=== PATIENT | female | born 1935 | race Caucasian/White ===

== ENCOUNTER 2016-04-26 10:10 | Inpatient (IN) | payer SELFPAY ==
[2016-04-26] MEDS: MEGESTROL 40 MG/ML PO SCH (16:51)
[2016-04-26] MEDS: FLUTICASONE INH SCH (19:31)
[2016-04-26] MEDS: SALMETEROL INH SCH (19:31)
[2016-04-26] MEDS: LACTOBACILLUS RHAMNOSUS GG PO SCH (19:31)
--- NOTE | 2016-04-26 22:18 | PCM.HP ---
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 who was discharge few days ago on home health care. Apparently patient claims that she is not getting enough time with the home health, and feels she needs more time around nursing care. She claims her appetite has improved since she has been on megace. HAs difficulty with cooking her meals and feels the nurse aid is not giving her enough time at home. Hence she is admitted under respite care to the hospital. - Related Data Allergies/Adverse Reactions: Allergies Allergy/AdvReac Type Severity Reaction Status Date / Time amoxicillin [From Augmentin] Allergy Cannot Verified 04/26/16 12:09 Remember clavulanic acid Allergy Cannot Verified 04/26/16 12:09 [From Augmentin] Remember levofloxacin [From Levaquin] Allergy Muscle Verified 04/26/16 12:09 Aches lidocaine Allergy Tachycardia Verified 04/26/16 12:09 Home Medications: Home Meds Fluticasone/Salmeterol [Advair Diskus 500-50] 1 puff PO BID 10/19/15 [History] Hydrochlorothiazide 50 mg PO DAILY 10/19/15 [History] Multivitamin [Multi-Vitamin Daily] 1 each PO DAILY 10/19/15 [History] Tiotropium [place] [Spiriva Respimat] 1 puff PO DAILY 10/19/15 [History] Enoxaparin Sodium [Lovenox] 50 mg SQ QPM 02/15/16 [History] Aspirin [Anson Chewable Aspirin] 81 mg PO DAILY 04/21/16 [History] Calcium Carbonate [Calcium] 500 mg PO QPM 04/21/16 [History] Cholecalciferol (Vitamin D3) [Vitamin D3] 2,000 unit PO QPM 04/21/16 [History] Clarithromycin 500 mg PO DAILY 04/21/16 [History] Ethambutol HCl 800 mg PO DAILY 04/21/16 [History] Fluticasone Propionate [Flonase] 1 spray NASBOTH DAILY 04/21/16 [History] PARoxetine HCl [Paroxetine HCl] 10 mg PO DAILY 04/21/16 [History] Rifampin 600 mg PO DAILY 04/21/16 [History] Lactobacillus Rhamnosus GG [Culturelle] 1 cap PO BID 04/26/16 [History] Megestrol [Megace 40 MG/ML Susp] 400 mg PO BIDMEALS 04/26/16 [History] Past Medical History HEENT History: Reports: Cataract, Impaired vision Cardiovascular History: Reports: Blood clots/VTE/DVT, High cholesterol, Hypertension Respiratory History: Reports: COPD, Other (see below) Other Respiratory History: Alpha 1 anti tryptson deficiency; pulmonary MAC infection Gastrointestinal History: Reports: Other (see below) Other Gastrointestinal History: malnutrition THEATER USHER History: Reports: Fibroids, Other (see below) Other OB/BYN History: under vaginal hysterectomy Musculoskeletal History: Reports: Arthritis Psychiatric History: Reports: Anxiety, Depression Dermatologic History: Reports: Other (see below) Other Dermatologic History: Rosacia - Infectious Disease History Infectious Disease History: Reports: Chicken pox, Measles, Mumps, Shingles, Other (see below) Other Infectious Disease History: cavitated mycobacterium - Past Surgical History HEENT Surgical History: Reports: Cataract surgery GI Surgical History: Reports: Colonoscopy Female Surgical History: Reports: Hysterectomy Social & Family History - Family History Family Medical History: Noncontributory OBGYN: Reports: None Oncologic: Reports: Ovarian - Tobacco Use Smoking Status *Q: Never Smoker Second Hand Smoke Exposure: No - Caffeine Use Caffeine Use: Reports: Coffee - Recreational Drug Use Recreational Drug Use: No H&P Review of Systems - Review of Systems: Review Of Systems: See Below General: Reports: weakness. Denies: fever, chills HEENT: Denies: ear pain, hearing changes, rhinitis, sore throat, vertigo, visual changes Pulmonary: Reports: cough, sputum. Denies: shortness of breath, wheezing Cardiovascular: Denies: chest pain, palpitations, lightheadedness Gastrointestinal: Denies: Abdominal pain, Constipation, Nausea, Vomiting Genitourinary: Denies: dysuria, frequency Musculoskeletal: Denies: shoulder pain, foot pain, joint pain, muscle pain, muscle stiffness Skin: Denies: bruising, pruritis Psychiatric: Denies: confusion, mood lability Exam - Exam Exam: See Below - Vital Signs Vital Signs: Last Vital Signs Temp 98.6 F 04/26/16 13:12 Pulse 101 H 04/26/16 13:12 Resp 20 04/26/16 13:12 BP 118/70 04/26/16 13:12 Pulse Ox 97 04/26/16 13:12 Weight: 50.167 kg - Exam Quality Assessment: supplemental oxygen, other (cachexic) General: alert, oriented, 4 HEENT: PERRLA, Hearing intact, Mucosa moist & pink, Nares patent, Normal nasal septum, Posterior pharynx clear, Conjunctiva clear, EOMI, EACs clear, TMs clear Neck: supple Lungs: Clear to auscultation, Normal respiratory effort Cardiovascular: regular rate, regular rhythm Abdomen: normal bowel sounds, soft Back Exam: normal inspection, full range of motion, NT Extremities: normal inspection, edema (2+ around ankle and lower legs) Skin: warm, dry, intact Neuro Extensive - Mental Status: alert, oriented x3, normal mood/affect, normal cognition Neuro Extensive - Motor, Sensory, Reflexes: CN II-XII intact, normal gait, normal reflexes Psychiatric: alert, normal mood *Q Meaningful Use (ADM) - VTE *Q VTE Criteria *Q: - Stroke *Q Stroke Criteria *Q: - AMI *Q AMI Criteria *Q: - Problem List (1) Moderate protein malnutrition SNOMED Code(s): 509734326 ICD Code: E44.0 - MODERATE PROTEIN-CALORIE MALNUTRITION Status: Acute Current Visit: No (2) Weakness SNOMED Code(s): 14284351 ICD Code: R53.1 - WEAKNESS Status: Acute Current Visit: No Problem List Initiated/Reviewed/Updated: Yes Orders Last 24hrs: Active Orders 24 hr Category Date Time Status Patient Status [ADT] Routine ADT 04/26/16 13:12 Active Ambulate [RC] ASDIRECTED Care 04/26/16 13:12 Active Intake and Output [RC] 06,18 Care 04/26/16 13:14 Active Oxygen Therapy [RC] Care 04/26/16 13:12 Active VTE/DVT Education [RC] Per Unit Routine Care 04/26/16 13:12 Active Vital Signs [RC] DAILY Care 04/26/16 13:12 Active Regular Diet [DIET] Diet 04/26/16 Dinner Ordered CULTURE MRSA SURVEY [RM] Routine Lab 04/26/16 14:53 Received Aspirin Med 04/27/16 08:00 Active 81 mg PO DAILY Calcium Carbonate [Calcium] Med 04/26/16 20:00 Active 500 mg PO QPM Cholecalciferol (Vitamin D3) [Vitamin D3] Med 04/26/16 20:00 Active 2,000 unit PO QPM Clarithromycin [Biaxin] Med 04/27/16 08:00 Active 500 mg PO DAILY Enoxaparin [Lovenox] Med 04/26/16 20:00 Active 50 mg SUBCUT QPM Ethambutol HCl [Ethambutol HCl] Med 04/27/16 08:00 Active 800 mg PO DAILY Fluticasone Propionate [Flonase] Med 04/27/16 08:00 Active 0 gm NASBOTH DAILY Fluticasone/Salmeterol [Advair Diskus 500-50] Med 04/26/16 20:00 Active 1 puff INH BID Hydrochlorothiazide Med 04/27/16 08:00 Active 50 mg PO DAILY Lactobacillus Rhamnosus GG [Culturelle] Med 04/26/16 20:00 Active 1 cap PO BID Megestrol [Megace 40 MG/ML Susp] Med 04/26/16 17:00 Active 400 mg PO BIDMEALS Multivitamin [Multi-Vitamin Daily] Med 04/27/16 08:00 Active 1 each PO DAILY PARoxetine HCl [Paroxetine HCl] Med 04/27/16 08:00 Active 10 mg PO DAILY Rifampin [Rifampin] Med 04/27/16 08:00 Active 600 mg PO DAILY Tiotropium [place] [Spiriva Respimat] Med 04/27/16 08:00 Active 1 puff PO DAILY Resuscitation Status Routine Resus Stat 04/26/16 13:12 Ordered Medication Orders Aspirin (Aspirin) 81 mg PO DAILY [facility] Cholecalciferol (Vitamin D3) 2,000 unit PO QPM [facility] Last Admin: 04/26/16 19:32 Dose: 2,000 unit Clarithromycin (Biaxin) 500 mg PO DAILY [facility] Enoxaparin Sodium (Lovenox) 50 mg SUBCUT QPM [facility] Last Admin: 04/26/16 19:31 Dose: 50 mg Fluticasone Propionate (Flonase) 0 gm NASBOTH DAILY [facility] Hydrochlorothiazide (Hydrochlorothiazide) 50 mg PO DAILY [facility] Megestrol Acetate (Megace 40 Mg/Ml Susp) 400 mg PO BIDMEALS [facility] Last Admin: 04/26/16 16:51 Dose: 400 mg Nf Med 1 Each ( Calcium Carbonate [ Calcium] 500 Mg)* Ptom 500 mg PO QPM [facility] Last Admin: 04/26/16 19:31 Dose: 500 mg Nf Med 1 Each ( Ethambutol Hcl [ Ethambutol Hcl] 800 Mg)*Ptom 800 mg PO DAILY [facility] Nf Med 1 Each ( Lactobacillus Rhamnosus Gg [ Culturelle] 1 Cap)* Ptom 1 cap PO BID [facility] Last Admin: 04/26/16 19:31 Dose: 1 cap Nf Med 1 Each ( Multivitamin [Multi- Vitamin Daily] 1 Each)*Ptom 1 each PO DAILY [facility] Nf Med 1 Each ( Paroxetine Hcl [ Paroxetine Hcl] 10 Mg) *Ptom 10 mg PO DAILY [facility] Nf Med 1 Each ( Rifampin [Rifampin] 600 Mg) *Ptom 600 mg PO DAILY [facility] Nf Med1 Each ( Tiotropium [place] [ Spiriva Respimat] 1 Puff)*Ptom 1 puff PO DAILY [facility] Fluticasone/Salmeterol (Advair Diskus 500-50) 1 puff INH BID [facility] Last Admin: 04/26/16 19:31 Dose: 1 puff Assessment/Plan Comment:: Assesment:Protein energy malnutrition with weakness Plan: will admit patient to respite care. Will have outpatient OT and PT evaluation. will continue high protein diet. continue home medications. appetite has improved on megace, will continue megace for now.
[2016-04-27] MEDS: MEGESTROL 40 MG/ML PO SCH ×2 (08:12→16:27)
[2016-04-27] MEDS: FLUTICASONE INH SCH ×2 (08:13→19:31)
[2016-04-27] MEDS: SALMETEROL INH SCH ×2 (08:13→19:31)
[2016-04-27] MEDS: MULTIVITAMIN PO SCH (08:13)
[2016-04-27] MEDS: Fluticasone Propionate Nasal Spray 16 GM Bottle *PTOM NASBOTH SCH (08:15)
[2016-04-27] MEDS: ETHAMBUTOL HCL 800 MG PO SCH (08:15)
[2016-04-27] MEDS: PAROXETINE HCL 10 MG PO SCH (08:16)
[2016-04-27] MEDS: LACTOBACILLUS RHAMNOSUS GG PO SCH ×2 (08:16→19:33)
[2016-04-27] MEDS: Hydrochlorothiazide 25 MG Tab PO SCH (08:16)
[2016-04-27] MEDS: RIFAMPIN 600 MG PO SCH (08:17)
[2016-04-27] MEDS: CLARITHROMYCIN 500 MG PO SCH (08:19)
[2016-04-27] MEDS: Aspirin 81 MG Tab.Chew *PTOM PO SCH (08:19)
[2016-04-28] MEDS: MEGESTROL 40 MG/ML PO SCH ×2 (08:21→16:32)
[2016-04-28] MEDS: FLUTICASONE INH SCH ×2 (08:43→20:04)
[2016-04-28] MEDS: Hydrochlorothiazide 25 MG Tab PO SCH (08:43)
[2016-04-28] MEDS: RIFAMPIN 600 MG PO SCH (08:43)
[2016-04-28] MEDS: Aspirin 81 MG Tab.Chew *PTOM PO SCH (08:43)
[2016-04-28] MEDS: SALMETEROL INH SCH ×2 (08:43→20:04)
[2016-04-28] MEDS: CLARITHROMYCIN 500 MG PO SCH (08:43)
[2016-04-28] MEDS: Fluticasone Propionate Nasal Spray 16 GM Bottle *PTOM NASBOTH SCH (08:43)
[2016-04-28] MEDS: MULTIVITAMIN PO SCH (08:43)
[2016-04-28] MEDS: ETHAMBUTOL HCL 800 MG PO SCH (08:43)
[2016-04-28] MEDS: PAROXETINE HCL 10 MG PO SCH (08:43)
[2016-04-28] MEDS: LACTOBACILLUS RHAMNOSUS GG PO SCH ×2 (08:43→20:04)
[2016-04-29] MEDS: MEGESTROL 40 MG/ML PO SCH ×2 (06:34→16:20)
[2016-04-29] MEDS: FLUTICASONE INH SCH ×2 (09:18→19:54)
[2016-04-29] MEDS: SALMETEROL INH SCH ×2 (09:18→19:54)
[2016-04-29] MEDS: CLARITHROMYCIN 500 MG PO SCH (09:19)
[2016-04-29] MEDS: Aspirin 81 MG Tab.Chew *PTOM PO SCH (09:19)
[2016-04-29] MEDS: Fluticasone Propionate Nasal Spray 16 GM Bottle *PTOM NASBOTH SCH (09:20)
[2016-04-29] MEDS: Hydrochlorothiazide 25 MG Tab PO SCH (09:20)
[2016-04-29] MEDS: LACTOBACILLUS RHAMNOSUS GG PO SCH ×2 (09:20→19:55)
[2016-04-29] MEDS: ETHAMBUTOL HCL 800 MG PO SCH (09:20)
[2016-04-29] MEDS: RIFAMPIN 600 MG PO SCH (09:22)
[2016-04-29] MEDS: PAROXETINE HCL 10 MG PO SCH (09:22)
[2016-04-29] MEDS: MULTIVITAMIN PO SCH (09:22)
[2016-04-30] MEDS: MEGESTROL 40 MG/ML PO SCH ×2 (06:32→16:31)
[2016-04-30] MEDS: SALMETEROL INH SCH ×2 (10:07→20:40)
[2016-04-30] MEDS: FLUTICASONE INH SCH ×2 (10:07→20:40)
[2016-04-30] MEDS: RIFAMPIN 600 MG PO SCH (10:08)
[2016-04-30] MEDS: ETHAMBUTOL HCL 800 MG PO SCH (10:10)
[2016-04-30] MEDS: CLARITHROMYCIN 500 MG PO SCH (10:10)
[2016-04-30] MEDS: Fluticasone Propionate Nasal Spray 16 GM Bottle *PTOM NASBOTH SCH (10:10)
[2016-04-30] MEDS: Hydrochlorothiazide 25 MG Tab PO SCH (10:11)
[2016-04-30] MEDS: MULTIVITAMIN PO SCH (10:12)
[2016-04-30] MEDS: PAROXETINE HCL 10 MG PO SCH (10:12)
[2016-04-30] MEDS: Aspirin 81 MG Tab.Chew *PTOM PO SCH ×2 (10:13→10:14)
[2016-04-30] MEDS: LACTOBACILLUS RHAMNOSUS GG PO SCH ×2 (10:13→20:50)
[2016-05-01] MEDS: MEGESTROL 40 MG/ML PO SCH ×2 (07:12→16:06)
[2016-05-01] MEDS: FLUTICASONE INH SCH ×2 (09:26→20:54)
[2016-05-01] MEDS: SALMETEROL INH SCH ×2 (09:26→20:54)
[2016-05-01] MEDS: Aspirin 81 MG Tab.Chew *PTOM PO SCH (09:27)
[2016-05-01] MEDS: CLARITHROMYCIN 500 MG PO SCH (09:27)
[2016-05-01] MEDS: Fluticasone Propionate Nasal Spray 16 GM Bottle *PTOM NASBOTH SCH (09:28)
[2016-05-01] MEDS: ETHAMBUTOL HCL 800 MG PO SCH (09:28)
[2016-05-01] MEDS: Hydrochlorothiazide 25 MG Tab PO SCH (09:29)
[2016-05-01] MEDS: PAROXETINE HCL 10 MG PO SCH (09:30)
[2016-05-01] MEDS: LACTOBACILLUS RHAMNOSUS GG PO SCH ×2 (09:30→20:54)
[2016-05-01] MEDS: RIFAMPIN 600 MG PO SCH (09:30)
[2016-05-01] MEDS: MULTIVITAMIN PO SCH (09:31)
[2016-05-01] MEDS ORDERED: Acetaminophen 650 MG Tab.ER PO ONE (22:10)
[2016-05-01] MEDS ORDERED: Acetaminophen 650 MG Tab.ER ONE (22:13)
[2016-05-02] MEDS ORDERED: Acetaminophen 650 MG Tab.ER ONE (02:24)
[2016-05-02] MEDS: MEGESTROL 40 MG/ML PO SCH ×2 (07:30→16:25)
[2016-05-02] MEDS: Aspirin 81 MG Tab.Chew *PTOM PO SCH (07:52)
[2016-05-02] MEDS: SALMETEROL INH SCH ×2 (07:52→20:26)
[2016-05-02] MEDS: Fluticasone Propionate Nasal Spray 16 GM Bottle *PTOM NASBOTH SCH (07:52)
[2016-05-02] MEDS: FLUTICASONE INH SCH ×2 (07:52→20:26)
[2016-05-02] MEDS: CLARITHROMYCIN 500 MG PO SCH (07:52)
[2016-05-02] MEDS: Hydrochlorothiazide 25 MG Tab PO SCH (07:52)
[2016-05-02] MEDS: ETHAMBUTOL HCL 800 MG PO SCH (07:52)
[2016-05-02] MEDS: LACTOBACILLUS RHAMNOSUS GG PO SCH ×2 (07:52→20:27)
[2016-05-02] MEDS: MULTIVITAMIN PO SCH (07:52)
[2016-05-02] MEDS: PAROXETINE HCL 10 MG PO SCH (07:53)
[2016-05-02] MEDS: RIFAMPIN 600 MG PO SCH (07:53)
[2016-05-02] MEDS: diphenhydrAMINE 25 MG Cap PO PRN (14:49)
[2016-05-03] MEDS: MEGESTROL 40 MG/ML PO SCH ×2 (06:57→16:47)
[2016-05-03] MEDS: LACTOBACILLUS RHAMNOSUS GG PO SCH (08:14)
[2016-05-03] MEDS: SALMETEROL INH SCH ×2 (08:14→20:28)
[2016-05-03] MEDS: Aspirin 81 MG Tab.Chew *PTOM PO SCH (08:14)
[2016-05-03] MEDS: CLARITHROMYCIN 500 MG PO SCH (08:14)
[2016-05-03] MEDS: MULTIVITAMIN PO SCH (08:14)
[2016-05-03] MEDS: Fluticasone Propionate Nasal Spray 16 GM Bottle *PTOM NASBOTH SCH (08:14)
[2016-05-03] MEDS: FLUTICASONE INH SCH ×2 (08:14→20:28)
[2016-05-03] MEDS: ETHAMBUTOL HCL 800 MG PO SCH (08:14)
[2016-05-03] MEDS: PAROXETINE HCL 10 MG PO SCH (08:14)
[2016-05-03] MEDS: RIFAMPIN 600 MG PO SCH (08:14)
[2016-05-03] MEDS: Hydrochlorothiazide 25 MG Tab PO SCH (08:14)
[2016-05-03] MEDS: diphenhydrAMINE 25 MG Cap PO PRN (15:55)
[2016-05-03] MEDS: FLORAJEN3 PO SCH (20:28)
[2016-05-04] MEDS: MEGESTROL 40 MG/ML PO SCH ×2 (07:00→17:45)
[2016-05-04] MEDS: SALMETEROL INH SCH ×2 (08:10→20:07)
[2016-05-04] MEDS: FLUTICASONE INH SCH ×2 (08:10→20:07)
[2016-05-04] MEDS: CLARITHROMYCIN 500 MG PO SCH (08:12)
[2016-05-04] MEDS: ETHAMBUTOL HCL 800 MG PO SCH (08:13)
[2016-05-04] MEDS: MULTIVITAMIN PO SCH (08:14)
[2016-05-04] MEDS: Fluticasone Propionate Nasal Spray 16 GM Bottle *PTOM NASBOTH SCH (08:15)
[2016-05-04] MEDS: RIFAMPIN 600 MG PO SCH (08:16)
[2016-05-04] MEDS: PAROXETINE HCL 10 MG PO SCH (08:16)
[2016-05-04] MEDS: HCTZ 25 MG PO SCH (08:19)
[2016-05-04] MEDS: Aspirin 81 MG Tab.Chew *PTOM PO SCH (08:25)
[2016-05-04] MEDS: FLORAJEN3 PO SCH ×2 (08:31→20:08)
[2016-05-04] MEDS: ENOXAPARIN SUBCUT SCH (08:33)
[2016-05-04] MEDS: diphenhydrAMINE 25 MG Cap PO PRN (20:14)
[2016-05-05] MEDS: MEGESTROL 40 MG/ML PO SCH ×2 (06:52→20:57)
[2016-05-05] MEDS: SALMETEROL INH SCH ×2 (08:29→21:00)
[2016-05-05] MEDS: FLUTICASONE INH SCH ×2 (08:29→21:00)
[2016-05-05] MEDS: CLARITHROMYCIN 500 MG PO SCH (08:29)
[2016-05-05] MEDS: Aspirin 81 MG Tab.Chew *PTOM PO SCH (08:29)
[2016-05-05] MEDS: ETHAMBUTOL HCL 800 MG PO SCH (08:29)
[2016-05-05] MEDS: HCTZ 25 MG PO SCH (08:30)
[2016-05-05] MEDS: Fluticasone Propionate Nasal Spray 16 GM Bottle *PTOM NASBOTH SCH (08:30)
[2016-05-05] MEDS: FLORAJEN3 PO SCH ×2 (08:30→21:00)
[2016-05-05] MEDS: MULTIVITAMIN PO SCH (08:30)
[2016-05-05] MEDS: PAROXETINE HCL 10 MG PO SCH (08:30)
[2016-05-05] MEDS: RIFAMPIN 600 MG PO SCH (08:30)
[2016-05-05] MEDS: ENOXAPARIN SUBCUT SCH (10:09)
[2016-05-05] MEDS: diphenhydrAMINE 25 MG Cap PO PRN ×2 (11:20→20:49)
[2016-05-06] MEDS: MEGESTROL 40 MG/ML PO SCH ×2 (06:36→19:05)
[2016-05-06] MEDS: ENOXAPARIN SUBCUT SCH (08:00)
[2016-05-06] MEDS: Fluticasone Propionate Nasal Spray 16 GM Bottle *PTOM NASBOTH SCH (08:00)
[2016-05-06] MEDS: SALMETEROL INH SCH ×2 (08:51→20:00)
[2016-05-06] MEDS: FLUTICASONE INH SCH ×2 (08:51→20:00)
[2016-05-06] MEDS: PAROXETINE HCL 10 MG PO SCH (08:52)
[2016-05-06] MEDS: HCTZ 25 MG PO SCH (08:52)
[2016-05-06] MEDS: Aspirin 81 MG Tab.Chew *PTOM PO SCH (08:52)
[2016-05-06] MEDS: MULTIVITAMIN PO SCH (08:52)
[2016-05-06] MEDS: ETHAMBUTOL HCL 800 MG PO SCH (08:52)
[2016-05-06] MEDS: CLARITHROMYCIN 500 MG PO SCH (08:52)
[2016-05-06] MEDS: FLORAJEN3 PO SCH ×2 (08:52→20:00)
[2016-05-06] MEDS: RIFAMPIN 600 MG PO SCH (08:53)
[2016-05-06] MEDS: diphenhydrAMINE 25 MG Cap PO PRN (22:23)
[2016-05-07] MEDS: MEGESTROL 40 MG/ML PO SCH ×2 (07:45→17:45)
[2016-05-07] MEDS: RIFAMPIN 600 MG PO SCH (08:00)
[2016-05-07] MEDS: HCTZ 25 MG PO SCH (08:00)
[2016-05-07] MEDS: ETHAMBUTOL HCL 800 MG PO SCH (08:00)
[2016-05-07] MEDS: FLUTICASONE INH SCH ×2 (08:00→20:00)
[2016-05-07] MEDS: CLARITHROMYCIN 500 MG PO SCH (08:00)
[2016-05-07] MEDS: Fluticasone Propionate Nasal Spray 16 GM Bottle *PTOM NASBOTH SCH (08:00)
[2016-05-07] MEDS: SALMETEROL INH SCH ×2 (08:00→20:00)
[2016-05-07] MEDS: FLORAJEN3 PO SCH ×2 (08:00→20:00)
[2016-05-07] MEDS: ENOXAPARIN SUBCUT SCH (08:00)
[2016-05-07] MEDS: PAROXETINE HCL 10 MG PO SCH (08:00)
[2016-05-07] MEDS: MULTIVITAMIN PO SCH (08:00)
[2016-05-07] MEDS: Aspirin 81 MG Tab.Chew *PTOM PO SCH (10:02)
[2016-05-07] MEDS: diphenhydrAMINE 25 MG Cap PO PRN (17:45)
[2016-05-08] MEDS: diphenhydrAMINE 25 MG Cap PO PRN ×2 (05:17→18:48)
[2016-05-08] MEDS: MEGESTROL 40 MG/ML PO SCH ×2 (06:44→16:49)
[2016-05-08] MEDS: Aspirin 81 MG Tab.Chew *PTOM PO SCH (08:25)
[2016-05-08] MEDS: FLUTICASONE INH SCH ×2 (08:25→20:47)
[2016-05-08] MEDS: CLARITHROMYCIN 500 MG PO SCH (08:25)
[2016-05-08] MEDS: SALMETEROL INH SCH ×2 (08:25→20:47)
[2016-05-08] MEDS: ETHAMBUTOL HCL 800 MG PO SCH (08:25)
[2016-05-08] MEDS: Fluticasone Propionate Nasal Spray 16 GM Bottle *PTOM NASBOTH SCH (08:25)
[2016-05-08] MEDS: FLORAJEN3 PO SCH ×2 (08:26→20:47)
[2016-05-08] MEDS: PAROXETINE HCL 10 MG PO SCH (08:26)
[2016-05-08] MEDS: RIFAMPIN 600 MG PO SCH (08:26)
[2016-05-08] MEDS: MULTIVITAMIN PO SCH (08:26)
[2016-05-08] MEDS: HCTZ 25 MG PO SCH (08:26)
[2016-05-09] MEDS: diphenhydrAMINE 25 MG Cap PO PRN ×2 (05:46→20:42)
[2016-05-09] MEDS: MEGESTROL 40 MG/ML PO SCH ×2 (06:22→16:39)
[2016-05-09] MEDS: Fluticasone Propionate Nasal Spray 16 GM Bottle *PTOM NASBOTH SCH (07:48)
[2016-05-09] MEDS: ETHAMBUTOL HCL 800 MG PO SCH (07:48)
[2016-05-09] MEDS: HCTZ 25 MG PO SCH (07:48)
[2016-05-09] MEDS: MULTIVITAMIN PO SCH (07:49)
[2016-05-09] MEDS: ENOXAPARIN SUBCUT SCH ×2 (08:12→10:49)
[2016-05-09] MEDS: FLUTICASONE INH SCH ×2 (08:13→20:42)
[2016-05-09] MEDS: SALMETEROL INH SCH ×2 (08:13→20:42)
[2016-05-09] MEDS: RIFAMPIN 600 MG PO SCH (08:13)
[2016-05-09] MEDS: PAROXETINE HCL 10 MG PO SCH (08:13)
[2016-05-09] MEDS: CLARITHROMYCIN 500 MG PO SCH (08:14)
[2016-05-09] MEDS: Aspirin 81 MG Tab.Chew *PTOM PO SCH (08:14)
[2016-05-09] MEDS: FLORAJEN3 PO SCH ×2 (08:16→20:42)
--- NOTE | 2016-05-09 09:01 | PCM.PN ---
- General Info Date of Service: 05/09/16 Functional Status: Reports: tolerating diet, ambulating - Review of Systems General: Reports: weakness HEENT: Reports: no symptoms Pulmonary: Reports: no symptoms Cardiovascular: Reports: no symptoms Gastrointestinal: Reports: No symptoms Genitourinary: Reports: no symptoms Neurological: Reports: weakness Psychiatric: Reports: no symptoms - Patient Data Vitals - most recent: Last Vital Signs Temp 36.4 C 05/09/16 08:00 Pulse 85 05/09/16 08:00 Resp 20 05/09/16 08:00 BP 148/94 H 05/09/16 08:00 Pulse Ox 97 05/09/16 08:00 Weight - most recent: 46.901 kg I&O - last 24 hours: Intake & Output 05/08/16 05/09/16 05/09/16 22:59 06:59 14:59 Intake Total 600 540 Balance 600 540 Med Orders - Current: Current Medications Aspirin (Aspirin) 81 mg PO DAILY [facility] Last Admin: 05/09/16 08:14 Dose: 81 mg Cholecalciferol (Vitamin D3) 2,000 unit PO QPM [facility] Last Admin: 05/08/16 20:47 Dose: 2,000 unit Clarithromycin (Biaxin) 500 mg PO DAILY [facility] Last Admin: 05/09/16 08:14 Dose: 500 mg Diphenhydramine HCl (Benadryl) 25 mg PO BID PRN PRN Reason: itching Last Admin: 05/09/16 05:46 Dose: 25 mg Fluticasone Propionate (Flonase) 0 gm NASBOTH DAILY [facility] Last Admin: 05/09/16 07:48 Dose: 1 spray Megestrol Acetate (Megace 40 Mg/Ml Susp) 400 mg PO BID@0700,1700 [facility] Last Admin: 05/09/16 06:22 Dose: 400 mg Calcium Carbonate (500mg) 500 mg PO QPM [facility] Last Admin: 05/08/16 20:47 Dose: 500 mg Ethambutol Hcl 800 (Mg) 800 mg PO DAILY [facility] Last Admin: 05/09/16 07:48 Dose: 800 mg Multivitamin *Ptom 1 each PO DAILY [facility] Last Admin: 05/09/16 07:49 Dose: 1 each Paroxetine Hcl 10 Mg 10 mg PO DAILY [facility] Last Admin: 05/09/16 08:13 Dose: 10 mg [Rifampin] 600 Mg) 600 mg PO DAILY [facility] Last Admin: 05/09/16 08:13 Dose: 600 mg [Spiriva Respimat] 1 (Puff) 1 puff PO DAILY [facility] Last Admin: 05/09/16 07:58 Dose: 1 puff Hctz 25mg Tabs 2 each PO DAILY [facility] Last Admin: 05/09/16 07:48 Dose: 2 each Lovenox 0.6ml (Syringe) 0.5 each SUBCUT DAILY [facility] Last Admin: 05/09/16 08:12 Dose: 0.5 each Florajen3 1 each PO BID [facility] Last Admin: 05/09/16 08:16 Dose: 1 each Fluticasone/Salmeterol (Advair Diskus 500-50) 1 puff INH BID [facility] Last Admin: 05/09/16 08:13 Dose: 1 puff Discontinued Medications Acetaminophen (Tylenol Arthritis Pain) Confirm Administered Dose 650 mg .ROUTE .STK-MED ONE Stop: 05/01/16 22:14 Last Admin: 05/02/16 01:32 Dose: Not Given Acetaminophen (Tylenol Arthritis Pain) 650 mg PO ONETIME ONE Stop: 05/01/16 22:11 Last Admin: 05/01/16 22:15 Dose: 650 mg Acetaminophen (Tylenol Arthritis Pain) Confirm Administered Dose 650 mg .ROUTE .STK-MED ONE Stop: 05/02/16 02:25 Last Admin: 05/02/16 13:54 Dose: Not Given Enoxaparin Sodium (Lovenox) 50 mg SUBCUT QPM [facility] Last Admin: 05/02/16 20:24 Dose: 50 mg Hydrochlorothiazide (Hydrochlorothiazide) 50 mg PO DAILY [facility] Last Admin: 05/03/16 08:14 Dose: 50 mg Megestrol Acetate (Megace 40 Mg/Ml Susp) 400 mg PO BIDMEALS [facility] Last Admin: 04/28/16 08:21 Dose: 400 mg Nf Med 1 Each ( Lactobacillus Rhamnosus Gg [ Culturelle] 1 Cap)* Ptom 1 cap PO BID [facility] Last Admin: 05/03/16 08:14 Dose: 1 cap - Exam General: alert, oriented, cooperative HEENT: Pupils equal, Pupils reactive Neck: supple Lungs: Clear to auscultation, Normal respiratory effort Cardiovascular: regular rate, regular rhythm, murmurs Abdomen: bowel sounds present, soft, no tenderness Extremities: no edema Peripheral Pulses: 2+: dorsalis pedis (L), dorsalis pedis (R) Skin: warm, dry, intact Neurological: no new focal deficit - Problem List Review Problem List Initiated/Reviewed/Updated: Yes - Plan Plan:: Assesment:Protein energy malnutrition with weakness Plan: will admit patient to respite care. Will have outpatient OT and PT evaluation. will continue high protein diet. continue home medications. appetite has improved on megace, will continue megace for now. 05/09 Continued monitoring and f/u. Discussed patient plan and likely plan for [facility] and if not the [facility]. Patient has been doing well and we will continue on PT/OT and medication monitoring.
[2016-05-10] MEDS: Fluticasone Propionate Nasal Spray 16 GM Bottle *PTOM NASBOTH SCH (07:10)
[2016-05-10] MEDS: ETHAMBUTOL HCL 800 MG PO SCH (07:11)
[2016-05-10] MEDS: SALMETEROL INH SCH ×2 (07:13→22:17)
[2016-05-10] MEDS: FLUTICASONE INH SCH ×2 (07:13→22:17)
[2016-05-10] MEDS: FLORAJEN3 PO SCH ×2 (07:14→22:17)
[2016-05-10] MEDS: MULTIVITAMIN PO SCH (07:15)
[2016-05-10] MEDS: RIFAMPIN 600 MG PO SCH (07:16)
[2016-05-10] MEDS: Aspirin 81 MG Tab.Chew *PTOM PO SCH (07:16)
[2016-05-10] MEDS: PAROXETINE HCL 10 MG PO SCH (07:16)
[2016-05-10] MEDS: CLARITHROMYCIN 500 MG PO SCH (07:16)
[2016-05-10] MEDS: HCTZ 25 MG PO SCH (07:17)
[2016-05-10] MEDS: ENOXAPARIN SUBCUT SCH (07:17)
[2016-05-10] MEDS: MEGESTROL 40 MG/ML PO SCH (07:23)
[2016-05-10] MEDS: diphenhydrAMINE 25 MG Cap PO PRN ×2 (13:47→23:30)
[2016-05-11] MEDS: MEGESTROL 40 MG/ML PO SCH ×2 (06:54→17:34)
[2016-05-11] MEDS: FLUTICASONE INH SCH ×2 (08:40→21:08)
[2016-05-11] MEDS: SALMETEROL INH SCH ×2 (08:40→21:08)
[2016-05-11] MEDS: Aspirin 81 MG Tab.Chew *PTOM PO SCH (08:40)
[2016-05-11] MEDS: RIFAMPIN 600 MG PO SCH (08:40)
[2016-05-11] MEDS: HCTZ 25 MG PO SCH (08:41)
[2016-05-11] MEDS: ETHAMBUTOL HCL 800 MG PO SCH (08:42)
[2016-05-11] MEDS: Fluticasone Propionate Nasal Spray 16 GM Bottle *PTOM NASBOTH SCH (08:43)
[2016-05-11] MEDS: MULTIVITAMIN PO SCH (08:44)
[2016-05-11] MEDS: PAROXETINE HCL 10 MG PO SCH (08:44)
[2016-05-11] MEDS: CLARITHROMYCIN 500 MG PO SCH (08:44)
[2016-05-11] MEDS: FLORAJEN3 PO SCH ×2 (08:45→21:09)
[2016-05-11] MEDS: ENOXAPARIN SUBCUT SCH (10:17)
[2016-05-11] MEDS: diphenhydrAMINE 25 MG Cap PO PRN (10:21)
[2016-05-12] MEDS: MEGESTROL 40 MG/ML PO SCH ×2 (06:29→17:30)
[2016-05-12] MEDS: CLARITHROMYCIN 500 MG PO SCH (07:58)
[2016-05-12] MEDS: SALMETEROL INH SCH ×2 (07:58→19:17)
[2016-05-12] MEDS: FLORAJEN3 PO SCH ×2 (07:58→19:17)
[2016-05-12] MEDS: MULTIVITAMIN PO SCH (07:58)
[2016-05-12] MEDS: FLUTICASONE INH SCH ×2 (07:58→19:17)
[2016-05-12] MEDS: Fluticasone Propionate Nasal Spray 16 GM Bottle *PTOM NASBOTH SCH (07:59)
[2016-05-12] MEDS: PAROXETINE HCL 10 MG PO SCH (07:59)
[2016-05-12] MEDS: HCTZ 25 MG PO SCH (08:00)
[2016-05-12] MEDS: ETHAMBUTOL HCL 800 MG PO SCH (08:00)
[2016-05-12] MEDS: Aspirin 81 MG Tab.Chew *PTOM PO SCH (08:00)
[2016-05-12] MEDS: RIFAMPIN 600 MG PO SCH (08:01)
[2016-05-12] MEDS: ENOXAPARIN SUBCUT SCH (08:02)
[2016-05-12] MEDS: diphenhydrAMINE 25 MG Cap PO PRN ×2 (08:04→22:00)
[2016-05-13] MEDS: MEGESTROL 40 MG/ML PO SCH ×2 (06:36→17:13)
[2016-05-13] MEDS: SALMETEROL INH SCH ×2 (07:28→19:12)
[2016-05-13] MEDS: FLUTICASONE INH SCH ×2 (07:28→19:12)
[2016-05-13] MEDS: Aspirin 81 MG Tab.Chew *PTOM PO SCH (07:29)
[2016-05-13] MEDS: CLARITHROMYCIN 500 MG PO SCH (07:32)
[2016-05-13] MEDS: ETHAMBUTOL HCL 800 MG PO SCH (07:33)
[2016-05-13] MEDS: MULTIVITAMIN PO SCH (07:34)
[2016-05-13] MEDS: Fluticasone Propionate Nasal Spray 16 GM Bottle *PTOM NASBOTH SCH (07:34)
[2016-05-13] MEDS: FLORAJEN3 PO SCH ×2 (07:35→19:13)
[2016-05-13] MEDS: HCTZ 25 MG PO SCH (07:37)
[2016-05-13] MEDS: ENOXAPARIN SUBCUT SCH (07:37)
[2016-05-13] MEDS: PAROXETINE HCL 10 MG PO SCH (07:38)
[2016-05-13] MEDS: RIFAMPIN 600 MG PO SCH (07:39)
[2016-05-13] MEDS: diphenhydrAMINE 25 MG Cap PO PRN ×2 (07:41→19:13)
[2016-05-14] MEDS: MEGESTROL 40 MG/ML PO SCH ×2 (06:48→17:34)
[2016-05-14] MEDS: FLUTICASONE INH SCH ×2 (07:28→19:11)
[2016-05-14] MEDS: Aspirin 81 MG Tab.Chew *PTOM PO SCH (07:28)
[2016-05-14] MEDS: SALMETEROL INH SCH ×2 (07:28→19:11)
[2016-05-14] MEDS: CLARITHROMYCIN 500 MG PO SCH (07:29)
[2016-05-14] MEDS: MULTIVITAMIN PO SCH (07:30)
[2016-05-14] MEDS: ETHAMBUTOL HCL 800 MG PO SCH (07:30)
[2016-05-14] MEDS: Fluticasone Propionate Nasal Spray 16 GM Bottle *PTOM NASBOTH SCH (07:30)
[2016-05-14] MEDS: RIFAMPIN 600 MG PO SCH (07:31)
[2016-05-14] MEDS: PAROXETINE HCL 10 MG PO SCH (07:31)
[2016-05-14] MEDS: FLORAJEN3 PO SCH ×2 (07:31→19:12)
[2016-05-14] MEDS: HCTZ 25 MG PO SCH (07:31)
[2016-05-14] MEDS: ENOXAPARIN SUBCUT SCH (07:49)
[2016-05-14] MEDS: diphenhydrAMINE 25 MG Cap PO PRN ×2 (07:56→19:12)
[2016-05-15] MEDS: MEGESTROL 40 MG/ML PO SCH ×2 (06:31→19:30)
[2016-05-15] MEDS: MULTIVITAMIN PO SCH (07:57)
[2016-05-15] MEDS: Fluticasone Propionate Nasal Spray 16 GM Bottle *PTOM NASBOTH SCH (07:57)
[2016-05-15] MEDS: FLORAJEN3 PO SCH ×2 (07:57→19:30)
[2016-05-15] MEDS: FLUTICASONE INH SCH ×2 (07:57→19:31)
[2016-05-15] MEDS: HCTZ 25 MG PO SCH (07:57)
[2016-05-15] MEDS: CLARITHROMYCIN 500 MG PO SCH (07:57)
[2016-05-15] MEDS: SALMETEROL INH SCH ×2 (07:57→19:31)
[2016-05-15] MEDS: RIFAMPIN 600 MG PO SCH (07:57)
[2016-05-15] MEDS: ENOXAPARIN SUBCUT SCH (07:57)
[2016-05-15] MEDS: ETHAMBUTOL HCL 800 MG PO SCH (07:57)
[2016-05-15] MEDS: PAROXETINE HCL 10 MG PO SCH (07:57)
[2016-05-15] MEDS: Aspirin 81 MG Tab.Chew *PTOM PO SCH (07:57)
[2016-05-15] MEDS: diphenhydrAMINE 25 MG Cap PO PRN (19:36)
[2016-05-16] MEDS: MEGESTROL 40 MG/ML PO SCH (06:18)
[2016-05-16 07:31] VITALS: BP 132/81
[2016-05-16] MEDS: FLUTICASONE INH SCH (07:31)
[2016-05-16] MEDS: Aspirin 81 MG Tab.Chew *PTOM PO SCH (07:31)
[2016-05-16] MEDS: CLARITHROMYCIN 500 MG PO SCH (07:31)
[2016-05-16] MEDS: SALMETEROL INH SCH (07:31)
[2016-05-16] MEDS: Fluticasone Propionate Nasal Spray 16 GM Bottle *PTOM NASBOTH SCH (07:32)
[2016-05-16] MEDS: FLORAJEN3 PO SCH (07:32)
[2016-05-16] MEDS: ETHAMBUTOL HCL 800 MG PO SCH (07:32)
[2016-05-16] MEDS: RIFAMPIN 600 MG PO SCH (07:32)
[2016-05-16] MEDS: HCTZ 25 MG PO SCH (07:32)
[2016-05-16] MEDS: MULTIVITAMIN PO SCH (07:32)
[2016-05-16] MEDS: ENOXAPARIN SUBCUT SCH (07:32)
[2016-05-16] MEDS: PAROXETINE HCL 10 MG PO SCH (07:32)
--- NOTE | 2016-05-16 11:00 | PCM.DCSUM1 ---
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 Code: A31.0 - PULMONARY MYCOBACTERIAL INFECTION Status: Chronic Priority: Medium Current Visit: Yes (2) Weakness SNOMED Code(s): 15980363 ICD Code: R53.1 - WEAKNESS Status: Chronic Priority: High Current Visit : Yes - Patient Instructions Diet: Usual Diet as Tolerated Activity: As Tolerated Driving: Do Not Drive Notify Provider of: Fever, Increased Pain, Nausea and/or Vomiting - Discharge Plan Home Medications: Home Meds Fluticasone/Salmeterol [Advair Diskus 500-50] 1 puff PO BID 10/19/15 [History] Hydrochlorothiazide 50 mg PO DAILY 10/19/15 [History] Multivitamin [Multi-Vitamin Daily] 1 each PO DAILY 10/19/15 [History] Tiotropium [place] [Spiriva Respimat] 1 puff PO DAILY 10/19/15 [History] Enoxaparin Sodium [Lovenox] 50 mg SQ QPM 02/15/16 [History] Aspirin [Anson Chewable Aspirin] 81 mg PO DAILY 04/21/16 [History] Calcium Carbonate [Calcium] 500 mg PO QPM 04/21/16 [History] Cholecalciferol (Vitamin D3) [Vitamin D3] 2,000 unit PO QPM 04/21/16 [History] Clarithromycin 500 mg PO DAILY 04/21/16 [History] Ethambutol HCl 800 mg PO DAILY 04/21/16 [History] Fluticasone Propionate [Flonase] 1 spray NASBOTH DAILY 04/21/16 [History] PARoxetine HCl [Paroxetine HCl] 10 mg PO DAILY 04/21/16 [History] Rifampin 600 mg PO DAILY 04/21/16 [History] Lactobacillus Rhamnosus GG [Culturelle] 1 cap PO BID 04/26/16 [History] Megestrol [Megace 40 MG/ML Susp] 400 mg PO BIDMEALS 04/26/16 [History] - Discharge Summary/Plan Comment DC Time >30 min.: Yes Discharge Summary/Plan Comment: Patient will be discharged to [facility]. Discussed continue care with PT/ OT as needed, continued compliance with medication for the full course and to f/ u for labs and sputum culture monthly and as needed. - Patient Data Vitals - Most Recent: Last Vital Signs Temp 36.7 C 05/16/16 07:30 Pulse 100 05/16/16 07:30 Resp 18 05/16/16 07:30 BP 132/81 05/16/16 07:30 Pulse Ox 97 05/16/16 07:30 Weight - Most Recent: 46.085 kg I&O - Last 24 hours: Intake & Output 05/15/16 05/16/16 05/16/16 22:59 06:59 14:59 Intake Total 1050 596 Output Total 1520 500 Balance -470 96 Med Orders - Current: Current Medications Aspirin (Aspirin) 81 mg PO DAILY [facility] Last Admin: 05/16/16 07:31 Dose: 81 mg Cholecalciferol (Vitamin D3) 2,000 unit PO QPM [facility] Last Admin: 05/15/16 19:30 Dose: 2,000 unit Clarithromycin (Biaxin) 500 mg PO DAILY [facility] Last Admin: 05/16/16 07:31 Dose: 500 mg Diphenhydramine HCl (Benadryl) 25 mg PO BID PRN PRN Reason: itching Last Admin: 05/15/16 19:36 Dose: 25 mg Fluticasone Propionate (Flonase) 0 gm NASBOTH DAILY [facility] Last Admin: 05/16/16 07:32 Dose: 1 spray Megestrol Acetate (Megace 40 Mg/Ml Susp) 400 mg PO BID@0700,1700 [facility] Last Admin: 05/16/16 06:18 Dose: 400 mg Calcium Carbonate (500mg) 500 mg PO QPM [facility] Last Admin: 05/15/16 19:30 Dose: 500 mg Ethambutol Hcl 800 (Mg) 800 mg PO DAILY [facility] Last Admin: 05/16/16 07:32 Dose: 800 mg Multivitamin *Ptom 1 each PO DAILY [facility] Last Admin: 05/16/16 07:32 Dose: 1 each Paroxetine Hcl 10 Mg 10 mg PO DAILY [facility] Last Admin: 05/16/16 07:32 Dose: 10 mg [Rifampin] 600 Mg) 600 mg PO DAILY [facility] Last Admin: 05/16/16 07:32 Dose: 600 mg [Spiriva Respimat] 1 (Puff) 1 puff PO DAILY [facility] Last Admin: 05/16/16 07:33 Dose: 1 puff Hctz 25mg Tabs 2 each PO DAILY [facility] Last Admin: 05/16/16 07:32 Dose: 2 each Lovenox 0.6ml (Syringe) 0.5 each SUBCUT DAILY [facility] Last Admin: 05/16/16 07:32 Dose: 0.5 each Florajen3 1 each PO BID [facility] Last Admin: 05/16/16 07:32 Dose: 1 each Fluticasone/Salmeterol (Advair Diskus 500-50) 1 puff INH BID [facility] Last Admin: 05/16/16 07:31 Dose: 1 puff Discontinued Medications Acetaminophen (Tylenol Arthritis Pain) Confirm Administered Dose 650 mg .ROUTE .STK-MED ONE Stop: 05/01/16 22:14 Last Admin: 05/02/16 01:32 Dose: Not Given Acetaminophen (Tylenol Arthritis Pain) 650 mg PO ONETIME ONE Stop: 05/01/16 22:11 Last Admin: 05/01/16 22:15 Dose: 650 mg Acetaminophen (Tylenol Arthritis Pain) Confirm Administered Dose 650 mg .ROUTE .STK-MED ONE Stop: 05/02/16 02:25 Last Admin: 05/02/16 13:54 Dose: Not Given Enoxaparin Sodium (Lovenox) 50 mg SUBCUT QPM [facility] Last Admin: 05/02/16 20:24 Dose: 50 mg Hydrochlorothiazide (Hydrochlorothiazide) 50 mg PO DAILY [facility] Last Admin: 05/03/16 08:14 Dose: 50 mg Megestrol Acetate (Megace 40 Mg/Ml Susp) 400 mg PO BIDMEALS [facility] Last Admin: 04/28/16 08:21 Dose: 400 mg Nf Med 1 Each ( Lactobacillus Rhamnosus Gg [ Culturelle] 1 Cap)* Ptom 1 cap PO BID [facility] Last Admin: 05/03/16 08:14 Dose: 1 cap *Q Meaningful Use (DIS) - VTE *Q VTE Criteria *Q: - Stroke *Q Stroke Criteria *Q: - AMI *Q AMI Criteria *Q:
== END 2016-05-16 13:20 | disposition other institution (70) | DRG 178 ==
LOC: UNDOADMIN 11:30 → LB.MS 11:30
PROVIDERS: ADMIT Family Medicine; ATTEND Family Medicine
DX: A31.0 Pulmonary mycobacterial infection (principal); E22.2 Syndrome of inappropriate secretion of antidiuretic hormone; E44.0 Moderate protein-calorie malnutrition; R53.1 Weakness; J98.4 Other disorders of lung; Z88.1 Allergy status to other antibiotic agents; Z88.8 Allergy status to other drugs, medicaments and biological substances; Z79.82 Long term (current) use of aspirin; H54.7 Unspecified visual loss; Z86.718 Personal history of other venous thrombosis and embolism; I10 Essential (primary) hypertension; F32.9 Major depressive disorder, single episode, unspecified; F41.9 Anxiety disorder, unspecified; E88.01 Alpha-1-antitrypsin deficiency; M19.90 Unspecified osteoarthritis, unspecified site
CPT/HCPCS: 92610-GN; A9270-GY; J1650

== ENCOUNTER 2016-07-04 16:14 | Emergency (ER) | payer MEDICARE, BC ==
[2016-07-04 16:58] VITALS: BP 160/87
[2016-07-04] MEDS ORDERED: Sodium Chloride 0.9% 50 ML SDV IV PRN (17:43)
[2016-07-04] MEDS ORDERED: Iopamidol 755 Mg/ML 100 ML Bottle IV SCH (17:45)
[2016-07-04] MEDS ORDERED: Iopamidol 612 MG/ML 100 ML Bottle IV SCH (18:45)
[2016-07-04] MEDS ORDERED: Clindamycin HCl 150 MG Cap ONE (19:00)
--- NOTE | 2016-07-04 20:12 | CT ---
DATE OF SERVICE: 07/04/2016 CLINICAL DATA: Elevated D-dimer. ENHANCED CHEST CT Multislice acquisition through the chest with IV contrast was performed. Comparison is made to a prior enhanced chest CT dated 06/10/2016. There are extensive and emphysematous changes within the right lower and middle lobes that have not changed significantly from the prior study. There are irregular areas of consolidation within the lingular segment of the left upper lobe and left lower lobe that were not present on the prior exam consistent with pneumonia. There is persistent atelectasis and consolidation of the medial aspect of the right lower lobe, unchanged from the prior exam. There is a cavitary lesion in the right apex that does not appear changed from the prior study. No evidence of PE. No pleural effusions. No pneumothorax. No aortic aneurysm or dissection. No other significant interval changes from the prior study. [id number] [facility]
--- NOTE | 2016-07-05 01:33 | ER ---
CHIEF COMPLAINT: Patient complains of increasing shortness of breath over the past 2 weeks since stopping her Lovenox on 06/25/2016. She stopped the Lovenox due to bloody sputum. She has had some yellow phlegm at times, but her basic complaint is increasing shortness of breath and weakness. HISTORY OF PRESENT ILLNESS: The patient has known history of prior pulmonary embolus for which she is on the Lovenox. She also has a history of alpha-1 antitrypsin deficiency, history of active MAC infection, and history of hypertension. She has a history of chronic peripheral edema of the lower extremities. Recent lab work has shown her to have hypokalemia. REVIEW OF SYSTEMS: GENERAL: Patient denies any significant fevers. She has had some weight loss. She has significant fatigue. EYES: No complaints of vision changes. ENT: No nasal congestion, sore throat, or ear pain. CARDIOVASCULAR: No chest pain or palpitation. RESPIRATORY: Occasional yellow phlegm produced with her cough. Some dyspnea on exertion. Occasional wheezing. GASTROINTESTINAL: No nausea, vomiting, diarrhea, constipation, or heartburn. GENITOURINARY: No dysuria. MUSCULOSKELETAL: No changes. No joint pain or limited motion of joints. SKIN: She has a chronic rash since starting her antibiotics; her basket person and primary care physician are aware of this. She does use apple cider vinegar with fair results to resolve her rash. NEUROLOGIC: No complaints of focal weakness, numbness, or headache. PSYCHIATRIC: No depression. PHYSICAL EXAMINATION: GENERAL: A frail thin elderly female with nasal cannula in use. She is alert, oriented x3. No acute distress, at rest. VITAL SIGNS: Blood pressure in the emergency room was 160/87, respiration rate of 12, saturation on 4 L nasal cannula was 93%, temperature is 100.1, weight was 111 pounds, and height was 5 feet 1 inch. HEENT: Eyes show EOMI. Conjunctivae were clear. ENT, throat was clear. Ears, normal TMs. Nose is clear. NECK: Symmetrical. No thyromegaly. No bruits. LYMPHATIC: Negative. SKIN: faint diffuse raised red rash on back possibly fungal LUNGS: Distant. I do not hear anyrales, rhonchi, or wheezes. HEART: Tachycardia with frequent PACs. ABDOMEN: Soft, nontender. No mass. No organomegaly. BACK: No CVA or cord tenderness. EXTREMITIES: No clubbing or cyanosis, but she does have +3 edema bilaterally. NEUROLOGIC: No focal deficits. PSYCHIATRIC: Normal judgment and insight. Oriented x3. LABORATORY DATA: Lab work done in the ER include EKG which shows sinus tachycardia with frequent PACs, rate of approximately 130. Chest CAT scan was performed. Preliminary results CAT scan shows improvement in her cavitary lesions of the right lung apex. There is extensive bullous emphysema present with expansion of the right middle lobe compressing much of the right upper lobe medially. There is complete collapse of the right lower lobe. There is new patchy left lower lobe and to a lesser extent inferior lingular consolidation with pneumonia or aspiration not excluded. There is a lobular partially occlusive filling defect in the left main stem bronchus. Overall impression: New patchy consolidation/infiltrate, left lower lobe; and inferior lingula pneumonia, aspiration component not excluded. There is endobronchial material as described above. No central pulmonary emboli. Improvement of the previously described right upper lobe cavitary pathology. A CBC was performed, shows a white count of 11.5, up from her white count of 4.7 on 06/23/2016. Her hemoglobin, hematocrit, and platelets are all normal. A D- dimer was performed which was 948. Electrolytes were performed. There has been improvement of her potassium which is now at 3.4. Her calcium is elevated at 12.2, magnesium is low at 1.4. Her liver enzymes have normalized. ASSESSMENT: 1. New left lower lobe and inferior lingula infiltrate. 2. New endobronchial lesion on the left. 3. Resolving cavitary pathology. PLAN: I will ask Dr. Harman to make a referral back to her basket person for possible bronchoscopy to make sure that this new lesion is not malignant in nature. I will have her stop her hydrochlorothiazide at this point in time due to the elevation of her calcium. I will switch her over to Aldactone 50 mg p.o. daily. For her tachycardia, I will ask that they do an echo to evaluate ejection fraction, to rule out any wall motion deficits, and to evaluate for pulmonary hypertension. I asked the patient to start Coreg 3.125 mg p.o. b.i.d. to slow the heart rate and allow greater filling time to see if this does help her feel better. I asked the patient to start mag oxide [id number] 1 p.o. daily for her hypomagnesemia. Her labs will be repeated in about 2 weeks, sooner if she does not feel better. I will send a copy of the ER report to Dr. Harman and to Dr. Lita Michael in [place], and hopefully we can get this patient is scheduled for a pulmonary followup sooner and possible bronchoscopy. Patient will continue her current antibiotics. I added Clindamycin 150mg q 6 hours for aspiration pneumonia. Her respirations are stable at this time buther extermination inspector prognosis is poor. NELA/DAHIANA /[id number] MTDSoco
== END 2016-07-04 19:50 | disposition home or self-care (01) ==
LOC: LB.ED 16:14
DX: R91.8 Other nonspecific abnormal finding of lung field (principal); J98.09 Other diseases of bronchus, not elsewhere classified; I10 Essential (primary) hypertension
CPT/HCPCS: 36415; 71260; 80053; 81001; 83735; 83970; 85025; 85379; 87040; 93005; 99285; J7040; Q9967; 99284; A9270-GY

== ENCOUNTER 2017-03-08 17:30 | Inpatient (IN) | payer MEDICARE, BC ==
[2017-03-08] MEDS ORDERED: LORazepam 2 MG/ML SDV IVPUSH ONE (17:45)
[2017-03-08] MEDS ORDERED: Morphine 2 MG/ML Syringe ONE ×2 (17:49→19:20)
[2017-03-08] MEDS ORDERED: Albuterol/Ipratropium 3.0-0.5 MG/3 ML Neb Soln NEB PRN (18:47)
[2017-03-08] MEDS ORDERED: Sodium Chloride 0.9% 10 ML Syringe FLUSH PRN (18:48)
[2017-03-08] MEDS ORDERED: Lactated Ringers 1,000 ML IV SCH (19:00)
[2017-03-08] MEDS ORDERED: cefTRIAXone 1 GM in Sodium Chloride 0.9% 50 ML IV SCH (19:00)
--- NOTE | 2017-03-08 19:02 | EDM.PDOC ---
ED HPI GENERAL MEDICAL PROBLEM - General Chief Complaint: Abdominal Pain Stated Complaint: FALL - RIB PAIN Time Seen by Provider: 03/08/17 17:30 Source of Information: Reports: Patient, EMS Notes Reviewed, Old Records, Other History Limitations: Reports: Respiratory Distress - History of Present Illness INITIAL COMMENTS - FREE TEXT/NARRATIVE: This is an 81yo F brought in via EMS for abdominal pain. Patient appears to be in some respiratory distress. This is a new onset but patient does have history of shortness of breath and uses 2.5L oxygen all the time. Patient does complain of right abdominal pain since her fall at home. Onset: Today Duration: Day(s):, Getting Worse Location: Reports: Chest, Abdomen Severity: Moderate Improves with: Reports: None Worsens with: Reports: None Associated Symptoms: Reports: Shortness of Breath, Weakness - Related Data Allergies Allergy/AdvReac Type Severity Reaction Status Date / Time amoxicillin [From Augmentin] Allergy Cannot Verified 03/08/17 19:30 Remember clavulanic acid Allergy Cannot Verified 03/08/17 19:30 [From Augmentin] Remember epinephrine Allergy Cannot Verified 03/09/17 03:24 Remember levofloxacin [From Levaquin] Allergy Muscle Verified 03/08/17 19:30 Aches lidocaine Allergy Tachycardia Verified 03/08/17 19:30 procaine [From Novocain] Allergy Cannot Verified 03/09/17 03:24 Remember Home Meds: Home Meds Fluticasone/Salmeterol [Advair Diskus 500-50] 1 puff PO BID 10/19/15 [History] Hydrochlorothiazide 50 mg PO DAILY 10/19/15 [History] Multivitamin [Multi-Vitamin Daily] 1 each PO DAILY 10/19/15 [History] Tiotropium [place] [Spiriva Respimat] 1 puff PO DAILY 10/19/15 [History] Enoxaparin Sodium [Lovenox] 50 mg SQ QPM 02/15/16 [History] Aspirin [Anson Chewable Aspirin] 81 mg PO DAILY 04/21/16 [History] Calcium Carbonate [Calcium] 500 mg PO QPM 04/21/16 [History] Cholecalciferol (Vitamin D3) [Vitamin D3] 2,000 unit PO QPM 04/21/16 [History] Clarithromycin 500 mg PO DAILY 04/21/16 [History] Ethambutol HCl 800 mg PO DAILY 04/21/16 [History] Fluticasone Propionate [Flonase] 1 spray NASBOTH DAILY 04/21/16 [History] PARoxetine HCl [Paroxetine HCl] 10 mg PO DAILY 04/21/16 [History] Rifampin 600 mg PO DAILY 04/21/16 [History] Lactobacillus Rhamnosus GG [Culturelle] 1 cap PO BID 04/26/16 [History] Megestrol [Megace 40 MG/ML Susp] 400 mg PO BIDMEALS 04/26/16 [History] Past Medical History HEENT History: Reports: Cataract, Impaired Vision Cardiovascular History: Reports: Blood Clots/VTE/DVT, High Cholesterol, Hypertension Respiratory History: Reports: COPD, Other (See Below) Other Respiratory History: Alpha 1 anti tryptson deficiency; pulmonary MAC infection Gastrointestinal History: Reports: Other (See Below) Other Gastrointestinal History: malnutrition WELLNESS MANAGER History: Reports: Fibroids, Other (See Below) Other OB/BYN History: under vaginal hysterectomy Musculoskeletal History: Reports: Arthritis Psychiatric History: Reports: Anxiety, Depression Oncologic (Cancer) History: Reports: None Dermatologic History: Reports: Other (See Below) Other Dermatologic History: [place] - Infectious Disease History Infectious Disease History: Reports: Chicken Pox, Measles, Mumps, Shingles, Other (See Below) Other Infectious Disease History: cavitated mycobacterium - Past Surgical History HEENT Surgical History: Reports: Cataract Surgery Social & Family History - Family History Family Medical History: Noncontributory OBGYN: Reports: None Oncologic: Reports: Ovarian - Tobacco Use Smoking Status *Q: Never Smoker Second Hand Smoke Exposure: No - Caffeine Use Caffeine Use: Reports: Coffee - Recreational Drug Use Recreational Drug Use: No ED ROS GENERAL - Review of Systems Review Of Systems: ROS reveals no pertinent complaints other than HPI. ED EXAM, GENERAL - Physical Exam Exam: See Below Exam Limited By: No Limitations General Appearance: Alert, WD/WN, Anxious, Mild Distress Eye Exam: Bilateral Eye: EOMI, PERRL Ears: Normal External Exam Nose: Normal Inspection Throat/Mouth: Normal Inspection Head: Atraumatic, Normocephalic Neck: Normal Inspection Respiratory/Chest: Decreased Breath Sounds, Accessory Muscle Use Cardiovascular: Regular Rate, Rhythm, Tachycardia Peripheral Pulses: 2+: Dorsalis Pedis (L), Dorsalis Pedis (R) GI/Abdominal: Normal Bowel Sounds Extremities: Pedal Edema Neurological: Alert Psychiatric: Anxious Skin Exam: Warm, Dry, Intact Course - Vital Signs Last Recorded V/S: Last Vital Signs Temp 36.7 C 03/09/17 04:00 Pulse 111 H 03/09/17 04:00 Resp 28 H 03/09/17 12:00 BP 72/45 L 03/09/17 12:00 Pulse Ox 77 L 03/09/17 12:00 - Orders/Labs/Meds Orders: Active Orders 24 hr Category Date Time Status Communication, Vaccine [RC] PER UNIT ROUTINE Care 03/08/17 18:51 Active EKG Documentation Completion [RC] ASDIRECTED Care 03/08/17 18:52 Active Oxygen Therapy [RC] 06,18 Care 03/08/17 18:49 Active Pneumonia Education [RC] DAILY Care 03/08/17 18:48 Active RT Aerosol Therapy [RC] ASDIRECTED Care 03/08/17 18:48 Active Vaccines to be Administered [RC] PER UNIT ROUTINE Care 03/08/17 18:51 Active Regular Diet [DIET] Diet 03/09/17 Breakfast Ordered CBC WITH AUTO DIFF [HEME] AM Lab 03/10/17 05:11 Ordered CBC WITH AUTO DIFF [HEME] AM Lab 03/11/17 05:11 Ordered COMPREHENSIVE METABOLIC PN,CMP [CHEM] AM Lab 03/10/17 05:11 Ordered COMPREHENSIVE METABOLIC PN,CMP [CHEM] AM Lab 03/11/17 05:11 Ordered CULTURE BLOOD [BC] Routine Lab 03/08/17 18:46 Received CULTURE BLOOD [BC] Routine Lab 03/08/17 19:17 Received Albuterol/Ipratropium [DuoNeb 3.0-0.5 MG/3 ML] Med 03/08/17 18:47 Active 3 ml NEB Q2H PRN Cholecalciferol (Vitamin D3) [Vitamin D3] Med 03/08/17 20:00 Active 2,000 unit PO QPM Fluticasone Propionate [Flonase] Med 03/09/17 08:00 Active 0 gm NASBOTH DAILY Lactated Ringers [Ringers, Lactated] 1,000 ml Med 03/08/17 19:00 Active IV .BOLUS Magnesium Oxide Med 03/09/17 08:00 Active 500 mg PO DAILY Sodium Chloride 0.9% [Saline Flush] Med 03/08/17 18:48 Active 10 ml FLUSH ASDIRECTED PRN Spironolactone [Aldactone] Med 03/09/17 08:00 Active 50 mg PO DAILY GM Immunization Reflex [OM.PC] Click to Edit Oth 03/08/17 18:48 Ordered Peripheral IV Insertion Adult [OM.PC] Urgent Oth 03/08/17 18:48 Ordered EKG 12 Lead [EK] AM Ther 03/09/17 05:11 Ordered Medication Orders Albuterol/Ipratropium (Duoneb 3.0-0.5 Mg/3 Ml) 3 ml NEB Q2H PRN PRN Reason: Shortness of Breath Last Admin: 03/08/17 18:10 Dose: 3 ml Aspirin (Halfprin) 81 mg PO DAILY [facility] Calcium Carbonate/Glycine (Tums) 500 mg PO QPM [facility] Carvedilol (Coreg) 3.125 mg PO BIDMEALS [facility] Cholecalciferol (Vitamin D3) 2,000 unit PO QPM MARJAN Last Admin: 03/08/17 23:34 Dose: Not Given Fluticasone Propionate (Flonase) 0 gm NASBOTH DAILY [facility] Lactated Ringer's (Ringers, Lactated) 1,000 mls @ 65 mls/hr IV .BOLUS [facility] Last Infusion: 03/09/17 00:50 Dose: 75 mls/hr Admin: 03/08/17 22:15 Dose: 65 mls/hr Ceftriaxone Sodium 1 gm/ (Sodium Chloride) 50 mls @ 200 mls/hr IV Q24H MARJAN Last Admin: 03/09/17 07:49 Dose: 200 mls/hr Azithromycin 500 mg/ Sodium (Chloride) 250 mls @ 250 mls/hr IV DAILY [facility] Multivitamins/Minerals 10 ml/Thiamine HCl 200 mg/ Dextrose/Lactated Ringer's 1, 012 mls @ 100 mls/hr IV ASDIRECTED [facility] Lactobacillus Acidophilus (Acidolphilus Extra Strength) 1 tab PO BID [facility] Lorazepam (Ativan) 0.5 mg IVPUSH Q1H PRN PRN Reason: Anxiety Magnesium Oxide (Magnesium Oxide) 500 mg PO DAILY [facility] Mometasone Furoate/Formoterol Fumar (Dulera 200-5 Mcg) 2 puff IH BID MARJ[facility] Morphine Sulfate (Morphine) 2 mg IVPUSH Q1H PRN PRN Reason: Respiratory Depression Last Admin: 03/09/17 07:50 Dose: 1 mg Admin: 03/08/17 20:53 Dose: 1 mg Admin: 03/08/17 19:10 Dose: 2 mg Morphine Sulfate (Morphine) 1 mg SUBCUT Q1H PRN PRN Reason: Pain Last Admin: 03/09/17 11:35 Dose: 1 mg Multivitamins/Minerals (Thera M Plus) 1 tab PO DAILY [facility] Paroxetine HCl (Paxil) 10 mg PO DAILY [facility] Scopolamine (Transderm-Scop) 1.5 mg TRDERM Q72H PRN PRN Reason: Secretions Last Admin: 03/08/17 21:35 Dose: 1.5 mg Sodium Chloride (Saline Flush) 10 ml FLUSH ASDIRECTED PRN PRN Reason: Keep Vein Open Spironolactone (Aldactone) 50 mg PO DAILY MARJ[facility] Tiotropium [place] (Spiriva Handihaler) 18 mcg INH DAILY MARJAN Labs: Laboratory Tests 03/08/17 03/08/17 Range/Units 17:35 17:35 WBC 19.0 H D (4.0-11.0) K/uL RBC 5.51 (3.80-5.80) M/uL Hgb 16.9 H (11.5-16.5) g/dL Hct 52.3 H (37.0-47.0) % MCV 95 (76-96) fL MCH 30.7 (27.0-32.0) pg MCHC 32.3 (31.0-35.0) g/dL RDW 14.5 (11.0-16.0) % Plt Count 246 (150-500) K/uL MPV 10.5 H (6.0-10.0) fL Neut % (Auto) 94.7 H (45.0-70.0) % Lymph % (Auto) 2.3 L (20.0-40.0) % [place] % (Auto) 2.4 L (3.0-10.0) % Eos % (Auto) 0.5 L (1.0-5.0) % Baso % (Auto) 0.1 (0.0-0.5) % Neut # (Auto) 17.99 H (2.00-7.50) K/uL Lymph # (Auto) 0.43 L (1.50-4.00) K/uL [place] # (Auto) 0.46 (0.20-0.80) K/uL Eos # (Auto) 0.10 (0.04-0.40) K/uL Baso # (Auto) 0.02 (0.02-0.10) K/uL Sodium 136 (136-145) mmol/L Potassium 4.4 (3.5-5.1) mmol/L Chloride 95 L (98-107) mmol/L Carbon Dioxide 33.5 H (21.0-32.0) mmol/L Anion Gap 11.9 (5.0-15.0) mmol/L BUN 21 (8-26) mg/dL Creatinine 0.87 D (0.55-1.02) mg/dL Est Cr Clr Drug Dosing TNP Estimated GFR (MDRD) > 60 (>60) MLS/MIN BUN/Creatinine Ratio 24.1 (6-25) Glucose 140 H D (74-100) mg/dL Calcium 9.8 (8.5-10.1) mg/dL Meds: Medications Generic Name Dose Route Start Last Admin Trade Name Freq PRN Reason Stop Dose Admin Albuterol/Ipratropium 3 ml 03/08/17 18:47 03/08/17 18:10 Duoneb 3.0-0.5 Mg/3 Ml NEB 3 ml Q2H PRN Administration Shortness of Breath Aspirin 81 mg 03/09/17 08:00 Halfprin PO DAILY [facility] Calcium Carbonate/Glycine 500 mg 03/09/17 20:00 Tums PO QPM MARJAN Carvedilol 3.125 mg 03/09/17 08:00 Coreg PO BIDMEALS MARJAN Cholecalciferol 2,000 unit 03/08/17 20:00 03/08/17 23:34 Vitamin D3 PO Not Given QPM [facility] Fluticasone Propionate 0 gm 03/09/17 08:00 Flonase NASBOTH DAILY [facility] Lactated Ringer's 1,000 mls @ 65 mls/hr 03/08/17 19:00 03/09/17 00:50 Ringers, Lactated IV 75 mls/hr .BOLUS [facility] Infusion Ceftriaxone Sodium 1 gm/ 50 mls @ 200 mls/hr 03/09/17 08:00 03/09/17 07:49 Sodium Chloride IV 200 mls/hr Q24H MARJAN Administration Azithromycin 500 mg/ Sodium 250 mls @ 250 mls/hr 03/09/17 08:22 Chloride IV DAILY [facility] Multivitamins/Minerals 10 ml/ 1,012 mls @ 100 mls/hr 03/09/17 10:45 Thiamine HCl 200 mg/ Dextrose/ IV Lactated Ringer's ASDIRECTED MARJAN Lactobacillus Acidophilus 1 tab 03/09/17 08:00 Acidolphilus Extra Strength PO BID [facility] Lorazepam 0.5 mg 03/08/17 20:27 Ativan IVPUSH Q1H PRN Anxiety Magnesium Oxide 500 mg 03/09/17 08:00 Magnesium Oxide PO DAILY [facility] Mometasone Furoate/Formoterol Fumar 2 puff 03/09/17 20:00 Dulera 200-5 Mcg IH BID [facility] Morphine Sulfate 2 mg 03/08/17 17:40 03/09/17 07:50 Morphine IVPUSH 1 mg Q1H PRN Administration Respiratory Depression Morphine Sulfate 1 mg 03/09/17 11:23 03/09/17 11:35 Morphine SUBCUT 1 mg Q1H PRN Administration Pain Multivitamins/Minerals 1 tab 03/09/17 08:00 Thera M Plus PO DAILY [facility] Paroxetine HCl 10 mg 03/09/17 08:00 Paxil PO DAILY [facility] Scopolamine 1.5 mg 03/08/17 21:00 03/08/17 21:35 Transderm-Scop TRDERM 1.5 mg Q72H PRN Administration Secretions Sodium Chloride 10 ml 03/08/17 18:48 Saline Flush FLUSH ASDIRECTED PRN Keep Vein Open Spironolactone 50 mg 03/09/17 08:00 Aldactone PO DAILY [facility] Tiotropium [place] 18 mcg 03/09/17 08:00 Spiriva Handihaler INH DAILY [facility] Discontinued Medications Generic Name Dose Route Start Last Admin Trade Name Freq PRN Reason Stop Dose Admin Aspirin 81 mg 03/09/17 08:00 Aspirin PO DAILY [facility] Carvedilol 3.125 mg 03/08/17 20:00 03/08/17 23:34 Coreg PO Not Given BID [facility] Azithromycin 500 mg/ Sodium 100 mls @ 100 mls/hr 03/08/17 19:00 03/09/17 07: 48 Chloride IV 100 mls/hr DAILY [facility] Administration Ceftriaxone Sodium 1 gm/ 50 mls @ 200 mls/hr 03/08/17 19:00 03/08/17 19:39 Sodium Chloride IV 200 mls/hr Q24H [facility] Administration Lorazepam Confirm 03/08/17 19:46 03/08/17 21:09 Ativan Administered 03/08/17 19:47 Not Given Dose 2 mg .ROUTE .STK-MED ONE Lorazepam 0.5 mg 03/08/17 17:45 03/08/17 17:45 Ativan IVPUSH 03/08/17 17:46 0.5 mg ONETIME ONE Administration Morphine Sulfate Confirm 03/08/17 17:49 03/08/17 21:08 Morphine Administered 03/08/17 17:50 Not Given Dose 2 mg .ROUTE .STK-MED ONE Morphine Sulfate Confirm 03/08/17 19:20 03/08/17 21:08 Morphine Administered 03/08/17 19:21 Not Given Dose 2 mg .ROUTE .STK-MED ONE Non-Formulary Medication 500 mg 03/08/17 20:00 03/08/17 23:34 Calcium Carbonate [Calcium] PO Not Given QPM [facility] Non-Formulary Medication 1 puff 03/08/17 20:00 03/08/17 23:34 Fluticasone/Salmeterol [Advair Diskus 500-50] PO Not Given BID [facility] Non-Formulary Medication 1 cap 03/08/17 20:00 03/08/17 23:34 Lactobacillus Rhamnosus Gg [Culturelle] PO Not Given BID MARJAN Non-Formulary Medication 1 each 03/09/17 08:00 Multivitamin [Multi-Vitamin Daily] PO DAILY [facility] Non-Formulary Medication 10 mg 03/09/17 08:00 Paroxetine Hcl [Paroxetine Hcl] PO DAILY [facility] Non-Formulary Medication 1 puff 03/09/17 08:00 Tiotropium [place] [Spiriva Respimat] PO DAILY [facility] Scopolamine Confirm 03/08/17 21:31 03/08/17 23:34 Transderm-Scop Administered 03/08/17 21:32 Not Given Dose 1.5 mg .ROUTE .STK-MED ONE - Re-Assessments/Exams Free Text/Narrative Re-Assessment/Exam: Duoneb given and some improvement was seen. Departure - Departure Time of Disposition: 19:05 Disposition: Admitted As Inpatient 67 Condition: Critical Clinical Impression: Palliative care patient Abdominal pain Qualifiers: Abdominal location: right lower quadrant Qualified Code(s): R10.31 - Right lower quadrant pain Pneumonia due to infectious organism Qualifiers: Laterality: unspecified laterality Lung location: upper lobe of lung Qualified Code(s): J18.9 - Pneumonia, unspecified organism - Discharge Information - Problem List & Annotations (1) Need for comfort care SNOMED Code(s): 131297511 Code(s): FRW9325 - Status: Acute Priority: High Current Visit: Yes (2) Abdominal pain SNOMED Code(s): 57323487 Code(s): R10.9 - UNSPECIFIED ABDOMINAL PAIN Status: Acute Priority: High Current Visit: Yes Qualifiers: Abdominal location: right lower quadrant Qualified Code(s): R10.31 - Right lower quadrant pain (3) Palliative care patient SNOMED Code(s): 438101392 Code(s): Z51.5 - ENCOUNTER FOR PALLIATIVE CARE Status: Acute Priority: High Current Visit: Yes (4) Pneumonia due to infectious organism SNOMED Code(s): 917227421 Code(s): B99.9 - UNSPECIFIED INFECTIOUS DISEASE; J17 - PNEUMONIA IN DISEASES CLASSIFIED ELSEWHERE Status: Acute Priority: High Current Visit: Yes Annotation/Comment:: lungs sound clearer with better air movement, sats are great at 98% Qualifiers: Laterality: unspecified laterality Lung location: upper lobe of lung Qualified Code(s): J18.9 - Pneumonia, unspecified organism (5) Weakness SNOMED Code(s): 88169111 Code(s): R53.1 - WEAKNESS Status: Chronic Priority: High Current Visit : Yes - Problem List Review Problem List Initiated/Reviewed/Updated: Yes - My Orders Last 24 Hours: My Active Orders 03/08/17 18:46 CULTURE BLOOD [BC] Routine 03/08/17 18:47 Albuterol/Ipratropium [DuoNeb 3.0-0.5 MG/3 ML] 3 ml NEB Q2H PRN 03/08/17 18:48 Pneumonia Education [RC] DAILY RT Aerosol Therapy [RC] ASDIRECTED Sodium Chloride 0.9% [Saline Flush] 10 ml FLUSH ASDIRECTED PRN GM Immunization Reflex [OM.PC] Click to Edit Peripheral IV Insertion Adult [OM.PC] Urgent 03/08/17 18:49 Oxygen Therapy [RC] 06,18 03/08/17 18:51 Communication, Vaccine [RC] PER UNIT ROUTINE Vaccines to be Administered [RC] PER UNIT ROUTINE 03/08/17 18:52 EKG Documentation Completion [RC] ASDIRECTED 03/08/17 19:00 Lactated Ringers [Ringers, Lactated] 1,000 ml IV .BOLUS 03/08/17 19:17 CULTURE BLOOD [BC] Routine 03/08/17 20:00 Cholecalciferol (Vitamin D3) [Vitamin D3] 2,000 unit PO QPM 03/09/17 05:11 EKG 12 Lead [EK] AM 03/09/17 08:00 Fluticasone Propionate [Flonase] 0 gm NASBOTH DAILY Magnesium Oxide 500 mg PO DAILY Spironolactone [Aldactone] 50 mg PO DAILY 03/09/17 Breakfast Regular Diet [DIET] 03/10/17 05:11 CBC WITH AUTO DIFF [HEME] AM COMPREHENSIVE METABOLIC PN,CMP [CHEM] AM 03/11/17 05:11 CBC WITH AUTO DIFF [HEME] AM COMPREHENSIVE METABOLIC PN,CMP [CHEM] AM - Assessment/Plan Last 24 Hours: My Active Orders 03/08/17 18:46 CULTURE BLOOD [BC] Routine 03/08/17 18:47 Albuterol/Ipratropium [DuoNeb 3.0-0.5 MG/3 ML] 3 ml NEB Q2H PRN 03/08/17 18:48 Pneumonia Education [RC] DAILY RT Aerosol Therapy [RC] ASDIRECTED Sodium Chloride 0.9% [Saline Flush] 10 ml FLUSH ASDIRECTED PRN GM Immunization Reflex [OM.PC] Click to Edit Peripheral IV Insertion Adult [OM.PC] Urgent 03/08/17 18:49 Oxygen Therapy [RC] 06,18 03/08/17 18:51 Communication, Vaccine [RC] PER UNIT ROUTINE Vaccines to be Administered [RC] PER UNIT ROUTINE 03/08/17 18:52 EKG Documentation Completion [RC] ASDIRECTED 03/08/17 19:00 Lactated Ringers [Ringers, Lactated] 1,000 ml IV .BOLUS 03/08/17 19:17 CULTURE BLOOD [BC] Routine 03/08/17 20:00 Cholecalciferol (Vitamin D3) [Vitamin D3] 2,000 unit PO QPM 03/09/17 05:11 EKG 12 Lead [EK] AM 03/09/17 08:00 Fluticasone Propionate [Flonase] 0 gm NASBOTH DAILY Magnesium Oxide 500 mg PO DAILY Spironolactone [Aldactone] 50 mg PO DAILY 03/09/17 Breakfast Regular Diet [DIET] 03/10/17 05:11 CBC WITH AUTO DIFF [HEME] AM COMPREHENSIVE METABOLIC PN,CMP [CHEM] AM 03/11/17 05:11 CBC WITH AUTO DIFF [HEME] AM COMPREHENSIVE METABOLIC PN,CMP [CHEM] AM Plan: Patient admitted to critical bed. Placed on breathing treatments scheduled. Blood cultures done. IV antibiotics started. Labs reviewed and repeat in AM. Continuous oxygen to maintain oxygen saturation. Patient is on home 2.5L oxygen. Gentle IV hydration. Palliative care patient. Discussed with care givers and patient is DNR/DNI and will not be transferred. Patient is having difficulty maintaining saturation despite constant oxygen. Discussed with care givers and family that patient is critical and has a high mortality rate and may not survive the next 24hrs due to her difficulty with breathing.
[2017-03-08] MEDS: Morphine 2 MG/ML Syringe IVPUSH PRN ×2 (19:10→20:53)
[2017-03-08] MEDS ORDERED: LORazepam 2 MG/ML SDV ONE (19:46)
[2017-03-08] MEDS ORDERED: Non-Formulary Medication 1 Each (Fluticasone/Salmeterol [Advair Diskus 500-50] 1 PUFF) PO SCH (20:00)
[2017-03-08] MEDS ORDERED: Cholecalciferol (Vitamin D3) 2,000 Unit Cap PO SCH (20:00)
[2017-03-08] MEDS ORDERED: LACTOBACILLUS RHAMNOSUS GG PO SCH (20:00)
[2017-03-08] MEDS ORDERED: Carvedilol 3.125 MG Tab PO SCH (20:00)
[2017-03-08] MEDS ORDERED: Non-Formulary Medication 1 Each (Calcium Carbonate [Calcium] 500 MG) PO SCH (20:00)
[2017-03-08] MEDS ORDERED: LORazepam 2 MG/ML SDV IVPUSH PRN (20:27)
[2017-03-08] MEDS ORDERED: Scopolamine 1.5 MG Transdermal Patch TRDERM PRN (21:00)
[2017-03-08] MEDS ORDERED: Scopolamine 1.5 MG Transdermal Patch ONE (21:31)
[2017-03-09] MEDS: Morphine 2 MG/ML Syringe IVPUSH PRN (07:50)
[2017-03-09] MEDS ORDERED: PARoxetine 20 MG Tab PO SCH (08:00)
[2017-03-09] MEDS ORDERED: Multivitamins with Iron/Calcium/Folic Acid/Minerals Tab PO SCH (08:00)
[2017-03-09] MEDS ORDERED: Fluticasone Propionate Nasal Spray 16 GM Bottle NASBOTH SCH (08:00)
[2017-03-09] MEDS ORDERED: PAROXETINE HCL 10 MG PO SCH (08:00)
[2017-03-09] MEDS ORDERED: TIOTROPIUM BROMIDE PO SCH (08:00)
[2017-03-09] MEDS ORDERED: Spironolactone 25 MG Tab PO SCH (08:00)
[2017-03-09] MEDS ORDERED: Tiotropium Inhaler 18 MCG Inhalation Powder Cap Kit of 5 INH SCH (08:00)
[2017-03-09] MEDS ORDERED: Aspirin 81 MG Tab.Chew PO SCH (08:00)
[2017-03-09] MEDS ORDERED: Lactobacillus Acidophilus/Lactobacillus Sporogenes (Probiotic) Tab PO SCH (08:00)
[2017-03-09] MEDS ORDERED: Aspirin 81 MG Tab.EC PO SCH (08:00)
[2017-03-09] MEDS ORDERED: Carvedilol 3.125 MG Tab PO SCH (08:00)
[2017-03-09] MEDS ORDERED: cefTRIAXone 1 GM in Sodium Chloride 0.9% 50 ML IV SCH (08:00)
[2017-03-09] MEDS ORDERED: Non-Formulary Medication 1 Each (Multivitamin [Multi-Vitamin Daily] 1 EACH) PO SCH (08:00)
[2017-03-09] MEDS ORDERED: Azithromycin 500 MG in Sodium Chloride 0.9% 250 ML IV SCH (08:22)
--- NOTE | 2017-03-09 09:48 | CT ---
DATE OF SERVICE: 03/08/17 CLINICAL DATA: abdominal pain UNENHANCED CHEST CT: Multislice acquisition through the chest without IV contrast was performed. Comparison is made to a prior enhanced chest CT dated 07/04/16. Breathing motion artifact degrades image quality. The posterior aspect of both hemithoraces are partially cut off. There are extensive emphysematous changes throughout both lungs with bullous changes bilaterally. There is marked hyperexpansion of the right middle lobe and there is atelectasis of the right lower lobe, unchanged from the prior study. There is an area of infiltrate and consolidation involving the lingular segment of the left upper lobe and left lower lobe that was not present on the prior exam. Pneumonia is suspected. The exam is otherwise unchanged from the prior. UNENHANCED ABDOMEN AND PELVIC CT: Multislice acquisition through the abdomen and pelvis without IV or oral contrast was performed. No priors. Motion artifact significantly degrades image quality. There are emphysematous changes in both lower lungs. There is atelectasis of the right lower lobe. There is infiltrate and consolidation involving the lingular segment of the left upper lobe and left lower lobe suspicious for pneumonia. See chest CT dictation. The unenhanced liver appears normal. There are multiple small gallstones in the dependent gallbladder. No pericholecystic fluid. The spleen appears normal. The pancreas appears normal. The right and left adrenals appear normal. There is a 2.8 cm sharply transcribed fluid density lesion in the upper pole of the left kidney consistent with a benign renal cyst. No nephrocalcinosis or nephrolithiasis. No hydronephrosis or hydroureter. The bladder is partially fluid-filled and appears normal. The patient is status post hysterectomy. The appendix is not seen. No evidence of appendicitis. There is diverticulosis of the descending and sigmoid colon. No evidence of diverticulitis. There is a moderate size ventral hernia within the midline of the anterior abdominal wall that contains fat. No free air. No free fluid. No dilated loops of bowel. No adenopathy. No aortic aneurysm. IMPRESSION: Multiple findings as discussed above. [id number] [facility]
[2017-03-09] MEDS ORDERED: MVI, Adult with Vitamin K 10 ML, Thiamine 200 MG in Dextrose 5%-Lactated Ringers 1,000 ML IV SCH ×3 (10:45)
[2017-03-09] MEDS ORDERED: Morphine 2 MG/ML Syringe SUBCUT PRN (11:23)
[2017-03-09 13:39] VITALS: BP 72/45
--- NOTE | 2017-03-09 16:42 | PCM.PN ---
- General Info Date of Service: 03/09/17 Subjective Update: Patient unable to response very well and cannot voice her discomfort. She is able to look at you and squeeze your hand. She has been stable with her breathing over night. Overnight nurse reported that she was unable to place a humphrey but noticed vaginal swelling, bruising and a laceration of the lower vagina area. Patient oxygen saturation lower than yesterday with slight increased work of breathing throughout the radiology rn after rounds. Functional Status: Reports: Other (unable to obtain ROS as patient unable to communicate) - Review of Systems General: Reports: Weakness Pulmonary: Reports: Shortness of Breath - Patient Data Vitals - Most Recent: Last Vital Signs Temp 36.7 C 03/09/17 04:00 Pulse 111 H 03/09/17 04:00 Resp 28 H 03/09/17 12:00 BP 72/45 L 03/09/17 12:00 Pulse Ox 77 L 03/09/17 12:00 I&O - Last 24 Hours: Intake & Output 03/09/17 03/09/17 03/09/17 06:59 14:59 22:59 Intake Total 594 Output Total 0 Balance 594 Lab Results Last 24 Hours: Laboratory Results - last 24 hr 03/09/17 03/09/17 Range/Units 07:40 07:40 WBC 20.8 H* (4.0-11.0) K/uL RBC 5.32 (3.80-5.80) M/uL Hgb 16.4 (11.5-16.5) g/dL Hct 53.0 H (37.0-47.0) % MCV 100 H (76-96) fL MCH 30.8 (27.0-32.0) pg MCHC 30.9 L (31.0-35.0) g/dL RDW 14.7 (11.0-16.0) % Plt Count 202 (150-500) K/uL MPV 11.5 H (6.0-10.0) fL Neut % (Auto) 89.7 H (45.0-70.0) % Lymph % (Auto) 5.5 L (20.0-40.0) % [place] % (Auto) 4.6 (3.0-10.0) % Eos % (Auto) 0.0 L (1.0-5.0) % Baso % (Auto) 0.2 (0.0-0.5) % Neut # (Auto) 18.66 H (2.00-7.50) K/uL Lymph # (Auto) 1.15 L (1.50-4.00) K/uL [place] # (Auto) 0.96 H (0.20-0.80) K/uL Eos # (Auto) 0.01 L (0.04-0.40) K/uL Baso # (Auto) 0.04 (0.02-0.10) K/uL Sodium 134 L (136-145) mmol/L Potassium 4.9 (3.5-5.1) mmol/L Chloride 95 L (98-107) mmol/L Carbon Dioxide 30.2 (21.0-32.0) mmol/L Anion Gap 13.7 (5.0-15.0) mmol/L BUN 32 H D (8-26) mg/dL Creatinine 1.76 H D (0.55-1.02) mg/dL Est Cr Clr Drug Dosing TNP Estimated GFR (MDRD) 28 L (>60) MLS/MIN BUN/Creatinine Ratio 18.2 (6-25) Glucose 116 H (74-100) mg/dL Calcium 9.0 (8.5-10.1) mg/dL Total Bilirubin 0.8 D (0.0-1.0) mg/dL AST 37 (15-37) U/L ALT 38 (12-78) U/L Alkaline Phosphatase 81 (46-116) U/L Total Protein 7.2 (6.4-8.2) g/dL Albumin 2.6 L (3.4-5.0) g/dL Globulin 4.6 H (2.2-4.2) g/dL Albumin/Globulin Ratio 0.6 L (0.8-2.0) Med Orders - Current: Current Medications Albuterol/Ipratropium (Duoneb 3.0-0.5 Mg/3 Ml) 3 ml NEB Q2H PRN PRN Reason: Shortness of Breath Last Admin: 03/08/17 18:10 Dose: 3 ml Aspirin (Halfprin) 81 mg PO DAILY MARJAN Calcium Carbonate/Glycine (Tums) 500 mg PO QPM [facility]JAN Carvedilol (Coreg) 3.125 mg PO BIDMEALS [facility] Cholecalciferol (Vitamin D3) 2,000 unit PO QPM [facility] Last Admin: 03/08/17 23:34 Dose: Not Given Fluticasone Propionate (Flonase) 0 gm NASBOTH DAILY [facility] Lactated Ringer's (Ringers, Lactated) 1,000 mls @ 65 mls/hr IV .BOLUS [facility] Last Infusion: 03/09/17 00:50 Dose: 75 mls/hr Ceftriaxone Sodium 1 gm/ (Sodium Chloride) 50 mls @ 200 mls/hr IV Q24H [facility] Last Admin: 03/09/17 07:49 Dose: 200 mls/hr Azithromycin 500 mg/ Sodium (Chloride) 250 mls @ 250 mls/hr IV DAILY [facility] Multivitamins/Minerals 10 ml/Thiamine HCl 200 mg/ Dextrose/Lactated Ringer's 1, 012 mls @ 100 mls/hr IV ASDIRECTED [facility] Lactobacillus Acidophilus (Acidolphilus Extra Strength) 1 tab PO BID [facility] Lorazepam (Ativan) 0.5 mg IVPUSH Q1H PRN PRN Reason: Anxiety Magnesium Oxide (Magnesium Oxide) 500 mg PO DAILY [facility] Mometasone Furoate/Formoterol Fumar (Dulera 200-5 Mcg) 2 puff IH BID [facility] Morphine Sulfate (Morphine) 2 mg IVPUSH Q1H PRN PRN Reason: Respiratory Depression Last Admin: 03/09/17 07:50 Dose: 1 mg Morphine Sulfate (Morphine) 1 mg SUBCUT Q1H PRN PRN Reason: Pain Last Admin: 03/09/17 11:35 Dose: 1 mg Multivitamins/Minerals (Thera M Plus) 1 tab PO DAILY [facility] Paroxetine HCl (Paxil) 10 mg PO DAILY [facility] Scopolamine (Transderm-Scop) 1.5 mg TRDERM Q72H PRN PRN Reason: Secretions Last Admin: 03/08/17 21:35 Dose: 1.5 mg Sodium Chloride (Saline Flush) 10 ml FLUSH ASDIRECTED PRN PRN Reason: Keep Vein Open Spironolactone (Aldactone) 50 mg PO DAILY [facility] Tiotropium [place] (Spiriva Handihaler) 18 mcg INH DAILY [facility] Discontinued Medications Aspirin (Aspirin) 81 mg PO DAILY [facility] Carvedilol (Coreg) 3.125 mg PO BID [facility] Last Admin: 03/08/17 23:34 Dose: Not Given Azithromycin 500 mg/ Sodium (Chloride) 100 mls @ 100 mls/hr IV DAILY [facility] Last Admin: 03/09/17 07:48 Dose: 100 mls/hr Ceftriaxone Sodium 1 gm/ (Sodium Chloride) 50 mls @ 200 mls/hr IV Q24H [facility] Last Admin: 03/08/17 19:39 Dose: 200 mls/hr Lorazepam (Ativan) Confirm Administered Dose 2 mg .ROUTE .STK-MED ONE Stop: 03/08/17 19:47 Last Admin: 03/08/17 21:09 Dose: Not Given Lorazepam (Ativan) 0.5 mg IVPUSH ONETIME ONE Stop: 03/08/17 17:46 Last Admin: 03/08/17 17:45 Dose: 0.5 mg Morphine Sulfate (Morphine) Confirm Administered Dose 2 mg .ROUTE .STK-MED ONE Stop: 03/08/17 17:50 Last Admin: 03/08/17 21:08 Dose: Not Given Morphine Sulfate (Morphine) Confirm Administered Dose 2 mg .ROUTE .STK-MED ONE Stop: 03/08/17 19:21 Last Admin: 03/08/17 21:08 Dose: Not Given Non-Formulary Medication (Calcium Carbonate [Calcium]) 500 mg PO QPM [facility] Last Admin: 03/08/17 23:34 Dose: Not Given Non-Formulary Medication (Fluticasone/Salmeterol [Advair Diskus 500-50]) 1 puff PO BID [facility] Last Admin: 03/08/17 23:34 Dose: Not Given Non-Formulary Medication (Lactobacillus Rhamnosus Gg [Culturelle]) 1 cap PO BID [facility] Last Admin: 03/08/17 23:34 Dose: Not Given Non-Formulary Medication (Multivitamin [Multi-Vitamin Daily]) 1 each PO DAILY [facility] Non-Formulary Medication (Paroxetine Hcl [Paroxetine Hcl]) 10 mg PO DAILY [facility] Non-Formulary Medication (Tiotropium [place] [Spiriva Respimat]) 1 puff PO DAILY [facility] Scopolamine (Transderm-Scop) Confirm Administered Dose 1.5 mg .ROUTE .STK-MED ONE Stop: 03/08/17 21:32 Last Admin: 03/08/17 23:34 Dose: Not Given - Exam Quality Assessment: Supplemental Oxygen General: Moderate Distress, Obtunded HEENT: Pupils Equal Neck: Supple Lungs: Decreased Breath Sounds (very decrased breath sounds of right and decreased sounds of left) Cardiovascular: Regular Rhythm, Tachycardia GI/Abdominal Exam: Abnormal Bowel Sounds (decreased bowel sounds) (Female) Exam: Vaginal Bleeding (blood appears dark and not bright red), Vaginal Tears, Other (swelling of the labia majora and minora - humphrey tried to be placed and observed tear and swelling with Nurse this am after hearing report from Nurse) Extremities: Pedal Edema - Problem List & Annotations (1) Need for comfort care SNOMED Code(s): 950657434 Code(s): VZN5430 - Status: Acute Priority: High Current Visit: Yes (2) Abdominal pain SNOMED Code(s): 95706813 Code(s): R10.9 - UNSPECIFIED ABDOMINAL PAIN Status: Acute Priority: High Current Visit: Yes Qualifiers: Abdominal location: right lower quadrant Qualified Code(s): R10.31 - Right lower quadrant pain (3) Palliative care patient SNOMED Code(s): 226240707 Code(s): Z51.5 - ENCOUNTER FOR PALLIATIVE CARE Status: Acute Priority: High Current Visit: Yes (4) Pneumonia due to infectious organism SNOMED Code(s): 608590372 Code(s): B99.9 - UNSPECIFIED INFECTIOUS DISEASE; J17 - PNEUMONIA IN DISEASES CLASSIFIED ELSEWHERE Status: Acute Priority: High Current Visit: Yes Qualifiers: Laterality: unspecified laterality Lung location: upper lobe of lung Qualified Code(s): J18.9 - Pneumonia, unspecified organism Annotation/Comment:: lungs sound clearer with better air movement, sats are great at 98% (5) Weakness SNOMED Code(s): 12343800 Code(s): R53.1 - WEAKNESS Status: Chronic Priority: High Current Visit : Yes (6) Respiratory distress SNOMED Code(s): 832382610 Code(s): R06.03 - ACUTE RESPIRATORY DISTRESS Status: Acute Current Visit : Yes (7) Respiratory rate increased SNOMED Code(s): 979428250 Code(s): R06.82 - TACHYPNEA, NOT ELSEWHERE CLASSIFIED Status: Acute Current Visit: Yes (8) Oxygen desaturation SNOMED Code(s): 412394079 Code(s): R09.02 - HYPOXEMIA Status: Acute Current Visit: Yes - Problem List Review Problem List Initiated/Reviewed/Updated: Yes - My Orders Last 24 Hours: My Active Orders 03/08/17 17:40 Morphine 2 mg IVPUSH Q1H PRN 03/08/17 19:00 Humphrey Catheter Insertion [Insert Urinary Catheter] [OM.PC] Q24H Urinary Catheter Assessment [RC] ASDIRECTED 03/08/17 19:03 Vital Signs [RC] Q4H Resuscitation Status Routine 03/08/17 20:27 LORazepam [Ativan] 0.5 mg IVPUSH Q1H PRN 03/08/17 21:00 Scopolamine [Transderm-Scop] 1.5 mg TRDERM Q72H PRN 03/09/17 07:00 CULTURE MRSA SURVEY [RM] Routine 03/09/17 08:00 Acidophilus/Lactobac Spor [Acidolphilus Extra Strength] 1 tab PO BID Aspirin [Halfprin] 81 mg PO DAILY Carvedilol [Coreg] 3.125 mg PO BIDMEALS Multivitamins w-Iron/Ca/FA/Min [Thera M Plus] 1 tab PO DAILY PARoxetine [Paxil] 10 mg PO DAILY Tiotropium [Spiriva HandiHaler] 18 mcg INH DAILY cefTRIAXone [Rocephin] 1 gm Sodium Chloride 0.9% [Normal Saline] 50 ml IV Q24H 03/09/17 08:22 Azithromycin [Zithromax] 500 mg Sodium Chloride 0.9% [Normal Saline] 250 ml IV DAILY 03/09/17 10:45 MVI, Adult with Vitamin K [Infuvite Adult] 10 ml Thiamine [Vitamin B-1] 200 mg Dextrose 5%-Lactated Ringers 1,000 ml IV ASDIRECTED 03/09/17 11:23 Morphine 1 mg SUBCUT Q1H PRN 03/09/17 20:00 Calcium Carbonate [Tums] 500 mg PO QPM Mometasone/Formoterol [Dulera 200-5 MCG] 2 puff IH BID - Plan Plan:: Discussed Vulnerable adult possibility. Discussed with [employer] patient services and transaction advisory services manager for reporting. Continue current comfort cares, oxygen, antibiotics as directed. Patient status has been dynamic and her oxygen saturation has gradually decreased from this am to the 70's. Close f/u and will discuss and follow up Vulnerable Adult issues today. Patient is in critical condition. Continue current comfort and medical cares.
--- NOTE | 2017-03-09 16:58 | PCM.DCSUM1 ---
Discharge Summary - Discharge Data Discharge Date: 03/09/17 Discharge Disposition: 20 Condition: Good - Discharge Diagnosis/Problem(s) (1) Need for comfort care SNOMED Code(s): 864525560 ICD Code: [id number] - Status: Acute Priority: High Current Visit: Yes (2) Abdominal pain SNOMED Code(s): 24676929 ICD Code: R10.9 - UNSPECIFIED ABDOMINAL PAIN Status: Acute Priority: High Current Visit: Yes Qualifiers: Abdominal location: right lower quadrant Qualified Code(s): R10.31 - Right lower quadrant pain (3) Palliative care patient SNOMED Code(s): 856228845 ICD Code: Z51.5 - ENCOUNTER FOR PALLIATIVE CARE Status: Acute Priority: High Current Visit: Yes (4) Pneumonia due to infectious organism SNOMED Code(s): 657321884 ICD Code: B99.9 - UNSPECIFIED INFECTIOUS DISEASE; J17 - PNEUMONIA IN DISEASES CLASSIFIED ELSEWHERE Status: Acute Priority: High Current Visit: Yes Problem Details: lungs sound clearer with better air movement, sats are great at 98% Qualifiers: Laterality: unspecified laterality Lung location: upper lobe of lung Qualified Code(s): J18.9 - Pneumonia, unspecified organism (5) Weakness SNOMED Code(s): 61474328 ICD Code: R53.1 - WEAKNESS Status: Chronic Priority: High Current Visit : Yes (6) Respiratory distress SNOMED Code(s): 682701136 ICD Code: R06.03 - ACUTE RESPIRATORY DISTRESS Status: Acute Current Visit : Yes (7) Respiratory rate increased SNOMED Code(s): 241283539 ICD Code: R06.82 - TACHYPNEA, NOT ELSEWHERE CLASSIFIED Status: Acute Current Visit: Yes (8) Oxygen desaturation SNOMED Code(s): 214217095 ICD Code: R09.02 - HYPOXEMIA Status: Acute Current Visit: Yes - Discharge Plan Home Medications: Home Meds Fluticasone/Salmeterol [Advair Diskus 500-50] 1 puff PO BID 10/19/15 [History] Hydrochlorothiazide 50 mg PO DAILY 10/19/15 [History] Multivitamin [Multi-Vitamin Daily] 1 each PO DAILY 10/19/15 [History] Tiotropium [place] [Spiriva Respimat] 1 puff PO DAILY 10/19/15 [History] Enoxaparin Sodium [Lovenox] 50 mg SQ QPM 02/15/16 [History] Aspirin [Anson Chewable Aspirin] 81 mg PO DAILY 04/21/16 [History] Calcium Carbonate [Calcium] 500 mg PO QPM 04/21/16 [History] Cholecalciferol (Vitamin D3) [Vitamin D3] 2,000 unit PO QPM 04/21/16 [History] Clarithromycin 500 mg PO DAILY 04/21/16 [History] Ethambutol HCl 800 mg PO DAILY 04/21/16 [History] Fluticasone Propionate [Flonase] 1 spray NASBOTH DAILY 04/21/16 [History] PARoxetine HCl [Paroxetine HCl] 10 mg PO DAILY 04/21/16 [History] Rifampin 600 mg PO DAILY 04/21/16 [History] Lactobacillus Rhamnosus GG [Culturelle] 1 cap PO BID 04/26/16 [History] Megestrol [Megace 40 MG/ML Susp] 400 mg PO BIDMEALS 04/26/16 [History] Forms: ED Department Discharge, ED Return to Work/School Form Referrals: PCP,None [Primary Care Provider] - - Discharge Summary/Plan Comment Discharge Summary/Plan Comment: Patient passed at 1425. Specimen kit to be brought by Law enforcement and performed due to recent reported findings. Patient will go for autopsy. - Patient Data Vitals - Most Recent: Last Vital Signs Temp 36.7 C 03/09/17 04:00 Pulse 111 H 03/09/17 04:00 Resp 28 H 03/09/17 12:00 BP 72/45 L 03/09/17 12:00 Pulse Ox 77 L 03/09/17 12:00 I&O - Last 24 hours: Intake & Output 03/09/17 03/09/17 03/09/17 06:59 14:59 22:59 Intake Total 594 Output Total 0 Balance 594 Lab Results - Last 24 hrs: Laboratory Results - last 24 hr 03/09/17 03/09/17 Range/Units 07:40 07:40 WBC 20.8 H* (4.0-11.0) K/uL RBC 5.32 (3.80-5.80) M/uL Hgb 16.4 (11.5-16.5) g/dL Hct 53.0 H (37.0-47.0) % MCV 100 H (76-96) fL MCH 30.8 (27.0-32.0) pg MCHC 30.9 L (31.0-35.0) g/dL RDW 14.7 (11.0-16.0) % Plt Count 202 (150-500) K/uL MPV 11.5 H (6.0-10.0) fL Neut % (Auto) 89.7 H (45.0-70.0) % Lymph % (Auto) 5.5 L (20.0-40.0) % [place] % (Auto) 4.6 (3.0-10.0) % Eos % (Auto) 0.0 L (1.0-5.0) % Baso % (Auto) 0.2 (0.0-0.5) % Neut # (Auto) 18.66 H (2.00-7.50) K/uL Lymph # (Auto) 1.15 L (1.50-4.00) K/uL [place] # (Auto) 0.96 H (0.20-0.80) K/uL Eos # (Auto) 0.01 L (0.04-0.40) K/uL Baso # (Auto) 0.04 (0.02-0.10) K/uL Sodium 134 L (136-145) mmol/L Potassium 4.9 (3.5-5.1) mmol/L Chloride 95 L (98-107) mmol/L Carbon Dioxide 30.2 (21.0-32.0) mmol/L Anion Gap 13.7 (5.0-15.0) mmol/L BUN 32 H D (8-26) mg/dL Creatinine 1.76 H D (0.55-1.02) mg/dL Est Cr Clr Drug Dosing TNP Estimated GFR (MDRD) 28 L (>60) MLS/MIN BUN/Creatinine Ratio 18.2 (6-25) Glucose 116 H (74-100) mg/dL Calcium 9.0 (8.5-10.1) mg/dL Total Bilirubin 0.8 D (0.0-1.0) mg/dL AST 37 (15-37) U/L ALT 38 (12-78) U/L Alkaline Phosphatase 81 (46-116) U/L Total Protein 7.2 (6.4-8.2) g/dL Albumin 2.6 L (3.4-5.0) g/dL Globulin 4.6 H (2.2-4.2) g/dL Albumin/Globulin Ratio 0.6 L (0.8-2.0) Med Orders - Current: Current Medications Albuterol/Ipratropium (Duoneb 3.0-0.5 Mg/3 Ml) 3 ml NEB Q2H PRN PRN Reason: Shortness of Breath Last Admin: 03/08/17 18:10 Dose: 3 ml Aspirin (Halfprin) 81 mg PO DAILY [facility] Calcium Carbonate/Glycine (Tums) 500 mg PO QPM [facility] Carvedilol (Coreg) 3.125 mg PO BIDMEALS [facility] Cholecalciferol (Vitamin D3) 2,000 unit PO QPM [facility] Last Admin: 03/08/17 23:34 Dose: Not Given Fluticasone Propionate (Flonase) 0 gm NASBOTH DAILY [facility] Lactated Ringer's (Ringers, Lactated) 1,000 mls @ 65 mls/hr IV .BOLUS [facility] Last Infusion: 03/09/17 00:50 Dose: 75 mls/hr Ceftriaxone Sodium 1 gm/ (Sodium Chloride) 50 mls @ 200 mls/hr IV Q24H [facility] Last Admin: 03/09/17 07:49 Dose: 200 mls/hr Azithromycin 500 mg/ Sodium (Chloride) 250 mls @ 250 mls/hr IV DAILY [facility] Multivitamins/Minerals 10 ml/Thiamine HCl 200 mg/ Dextrose/Lactated Ringer's 1, 012 mls @ 100 mls/hr IV ASDIRECTED [facility] Lactobacillus Acidophilus (Acidolphilus Extra Strength) 1 tab PO BID [facility] Lorazepam (Ativan) 0.5 mg IVPUSH Q1H PRN PRN Reason: Anxiety Magnesium Oxide (Magnesium Oxide) 500 mg PO DAILY [facility] Mometasone Furoate/Formoterol Fumar (Dulera 200-5 Mcg) 2 puff IH BID [facility] Morphine Sulfate (Morphine) 2 mg IVPUSH Q1H PRN PRN Reason: Respiratory Depression Last Admin: 03/09/17 07:50 Dose: 1 mg Morphine Sulfate (Morphine) 1 mg SUBCUT Q1H PRN PRN Reason: Pain Last Admin: 03/09/17 11:35 Dose: 1 mg Multivitamins/Minerals (Thera M Plus) 1 tab PO DAILY [facility] Paroxetine HCl (Paxil) 10 mg PO DAILY [facility] Scopolamine (Transderm-Scop) 1.5 mg TRDERM Q72H PRN PRN Reason: Secretions Last Admin: 03/08/17 21:35 Dose: 1.5 mg Sodium Chloride (Saline Flush) 10 ml FLUSH ASDIRECTED PRN PRN Reason: Keep Vein Open Spironolactone (Aldactone) 50 mg PO DAILY [facility] Tiotropium [place] (Spiriva Handihaler) 18 mcg INH DAILY [facility] Discontinued Medications Aspirin (Aspirin) 81 mg PO DAILY [facility] Carvedilol (Coreg) 3.125 mg PO BID [facility] Last Admin: 03/08/17 23:34 Dose: Not Given Azithromycin 500 mg/ Sodium (Chloride) 100 mls @ 100 mls/hr IV DAILY [facility] Last Admin: 03/09/17 07:48 Dose: 100 mls/hr Ceftriaxone Sodium 1 gm/ (Sodium Chloride) 50 mls @ 200 mls/hr IV Q24H [facility] Last Admin: 03/08/17 19:39 Dose: 200 mls/hr Lorazepam (Ativan) Confirm Administered Dose 2 mg .ROUTE .STK-MED ONE Stop: 03/08/17 19:47 Last Admin: 03/08/17 21:09 Dose: Not Given Lorazepam (Ativan) 0.5 mg IVPUSH ONETIME ONE Stop: 03/08/17 17:46 Last Admin: 03/08/17 17:45 Dose: 0.5 mg Morphine Sulfate (Morphine) Confirm Administered Dose 2 mg .ROUTE .STK-MED ONE Stop: 03/08/17 17:50 Last Admin: 03/08/17 21:08 Dose: Not Given Morphine Sulfate (Morphine) Confirm Administered Dose 2 mg .ROUTE .STK-MED ONE Stop: 03/08/17 19:21 Last Admin: 03/08/17 21:08 Dose: Not Given Non-Formulary Medication (Calcium Carbonate [Calcium]) 500 mg PO QPM [facility] Last Admin: 03/08/17 23:34 Dose: Not Given Non-Formulary Medication (Fluticasone/Salmeterol [Advair Diskus 500-50]) 1 puff PO BID [facility] Last Admin: 03/08/17 23:34 Dose: Not Given Non-Formulary Medication (Lactobacillus Rhamnosus Gg [Culturelle]) 1 cap PO BID [facility] Last Admin: 03/08/17 23:34 Dose: Not Given Non-Formulary Medication (Multivitamin [Multi-Vitamin Daily]) 1 each PO DAILY [facility] Non-Formulary Medication (Paroxetine Hcl [Paroxetine Hcl]) 10 mg PO DAILY MARJ[facility] Non-Formulary Medication (Tiotropium [place] [Spiriva Respimat]) 1 puff PO DAILY [facility] Scopolamine (Transderm-Scop) Confirm Administered Dose 1.5 mg .ROUTE .STK-MED ONE Stop: 03/08/17 21:32 Last Admin: 03/08/17 23:34 Dose: Not Given *Q Meaningful Use (DIS) - VTE *Q VTE Criteria *Q: - Stroke *Q Stroke Criteria *Q: - AMI *Q AMI Criteria *Q:
[2017-03-09] MEDS ORDERED: Calcium Carbonate 500 MG Tab.Chew PO SCH (20:00)
[2017-03-09] MEDS ORDERED: Formoterol/Mometasone 200-5 MCG 8.8 GM Inhaler IH SCH (20:00)
== END 2017-03-09 14:35 | disposition expired | DRG 195 ==
LOC: LB.ED 17:30 → EEVIPCON 18:58 → LB.MS 18:58
PROVIDERS: ADMIT Family Medicine; ATTEND Family Medicine
DX: J18.9 Pneumonia, unspecified organism (principal); R09.02 Hypoxemia; R06.03 Acute respiratory distress; Z51.5 Encounter for palliative care; E88.01 Alpha-1-antitrypsin deficiency; Z66 Do not resuscitate; Z99.81 Dependence on supplemental oxygen; Z86.718 Personal history of other venous thrombosis and embolism; W19.XXXA Unspecified fall, initial encounter; Y92.009 Unspecified place in unspecified non-institutional (private) residence as the place of occurrence of the external cause; Y93.9 Activity, unspecified; R53.1 Weakness; R10.31 Right lower quadrant pain; S30.23XA Contusion of vagina and vulva, initial encounter; M19.90 Unspecified osteoarthritis, unspecified site; F41.9 Anxiety disorder, unspecified; F32.9 Major depressive disorder, single episode, unspecified; H54.7 Unspecified visual loss; Z79.82 Long term (current) use of aspirin; Z88.1 Allergy status to other antibiotic agents
CPT/HCPCS: 36415; 71250; 74176; 80048; 85025; 87040; J2060; J7620; 80053; 96374; 99285-25; A0425; A0429; A9270-GY; J0456; J0696; J2270; J7030; J7050; J7120